=== PATIENT | male | born 1975 | race Caucasian/White ===

== ENCOUNTER 2020-05-23 07:52 | Inpatient (IN) ==
--- NOTE | 2020-05-07 10:04 | PAT Medication Instructions ---
Medication Instructions Date of Service May 07, 2020 Home Medications Z-Quill 1 tab PO HS lisinopril 10 mg PO QAM loratadine [Claritin] 10 mg PO QAM multivitamin 1 tab PO DAILY omeprazole 40 mg PO QAM sulindac 150 mg PO BID ASK your surgeon for instructions sulindac 150 mg PO BID DO NOT take the morning of surgery lisinopril 10 mg PO QAM loratadine [Claritin] 10 mg PO QAM multivitamin 1 tab PO DAILY Take morning of surgery With a small sip of water, OTHERWISE NOTHING TO EAT OR DRINK AFTER MIDNIGHT: omeprazole 40 mg PO QAM Take evening before surgery Z-Quill 1 tab PO HS Other Notes If you have any questions please call us at [phone] or [phone] or [phone] or [phone]
--- NOTE | 2020-05-08 14:16 | Anesthesiology Consultation ---
Date of Service May 08, 2020 Assessment & Plan (1) Encounter for pre-operative examination: Chart Review Chart Review: Acceptable Risk for Surgery (pending surgeon ordered PCP clearanace and preop Covid testing results ) Awaiting surgeon ordered PCP clearance scheduled 05/13 Per PAT appt on 05/08/20, pt resides in [facility]. Has traveled to [facility] and [facility]. No known Covid positive contacts or Covid related symptoms. Educated patient to follow up with surgeon's office regarding Covid testing. Educated on importance of self quarantining, social distancing and wearing mask in public both for the patient and household contacts. Teaching & Discussion Pre-Anesthesia Teaching/Discussion Notes: Instructed NPO after midnight before surgery,except medications with 15 cc of water. Medication instructions provided according to the PAT guidelines. History Surgery Operation Date: 05/23/20 10:55 Proposed Procedures p L5-S1 Decompression and Fusion; Spinal Cord Monitoring - Charles Che DO Height/Weight Height: 5 ft 7 in Weight: 78.8 kg Allergies Allergy/AdvReac Type Severity Reaction Status Date / Time No Known Allergies Allergy Unknown Verified 05/07/20 08:22 Medications Home Medications Medication Instructions Recorded Confirmed Last Taken Z-Quill 1 tab PO HS 05/07/20 05/07/20 Unknown lisinopril 10 mg PO QAM 05/07/20 05/07/20 Unknown loratadine [Claritin] 10 mg PO QAM 05/07/20 05/07/20 Unknown multivitamin 1 tab PO DAILY 05/07/20 05/07/20 Unknown omeprazole 40 mg PO QAM 05/07/20 05/07/20 Unknown sulindac 150 mg PO BID 05/07/20 05/07/20 Unknown Past Medical History Medical History Arthritis Chronic obstructive pulmonary disease Well controlled and stable GERD (gastroesophageal reflux disease) Well controlled and stable Hypertension Insomnia Seasonal allergies Exercise / Class Metabolic Activity II 4-5 Yardwork/Stairs/Walk up hill (one flight of stairs - no chest pain or SOB ) Past Family History Family History Other No significant family history Past Surgical History Surgical History (Updated 05/08/20 @ 14:13 by Emma Whitney PA-C) History of lung surgery "PATCHED RT LUNG" FOR COLLAPSE LUNG- around 2006 [place] teeth removed Past Anesthesia History No Hx of Anesthesia Complications and No Family Hx of Anesthesia Complications History of PONV No Hx of PONV and No Hx of Motion Sickness Social History Smoking Status: Former smoker tobacco type: cigarettes Do You Dip or Chew Tobacco: No Smoking End Date: QUIT 4 YEARS AGO Hx Alcohol Use: Yes Alcohol type: beer alcohol intake frequency: a few times a month substance use type: does not use Review of Systems Patient denies chest pain, shortness of breath, dyspnea on exertion, cough, wheezing, palpitations. No hx of seizures, stroke, CA, apnea/snoring. No hx of blood clots or blood transfusions Physical Exam Vital Signs VITALS BP 119/79 P 90 TEMP 98.4 SP02 96% RESP 16 Constitutional no acute distress ENMT Mouth: no TMJ clicking Thyromental Distance: > or= 3.5 Finger Breadths (4.0) Mallampati Class: I Neck neck extension not limited Respiratory normal respiratory effort; no respiratory distress Auscultation: lungs clear to auscultation bilaterally; no wheezes Cardiovascular Rate/Rhythm: regular rate and regular rhythm Heart Sounds: no murmur Vessels: no carotid bruit Musculoskeletal Spine: no pain with cervical ROM Neurologic moves all extremities Psychiatric Orientation: alert Testing Laboratory Results 05/08/20 14:25 05/08/20 14:25 PT 10.8 Seconds (9.0-12.0) 05/08/20 14:25 INR 1.0 (0.9-1.1) 05/08/20 14:25 APTT 27.3 Seconds (21.0-31.0) 05/08/20 14:25 Urine Color Yellow 05/08/20 14:25 Urine Appearance Clear (Clear) 05/08/20 14:25 Urine pH 6.0 (4.5-7.5) 05/08/20 14:25 Ur Specific [place] 1.012 (1.000-1.030) 05/08/20 14:25 Urine Protein Negative (Negative) 05/08/20 14:25 Urine Glucose (UA) Negative (Negative) 05/08/20 14:25 Urine Ketones Negative (Negative) 05/08/20 14:25 Urine Nitrite Negative (Negative) 05/08/20 14:25 Ur Leukocyte Esterase Negative (Negative) 05/08/20 14:25 Blood Type O Negative 05/08/20 14:25 Antibody Screen NEGATIVE 05/08/20 14:25 Electrocardiogram Date: 05/08/20 Findings: + NSR @ (86) Chest X-Ray Date: 05/08/20 Findings: + NAD Suture material within the right lung apex, unchanged. Otherwise, the lungs are clear. No pleural effusions. No pneumothorax. The heart is normal in size.
--- NOTE | 2020-05-08 15:12 | XRay Report ---
XR chest Pre-admission PA/Lat HISTORY: Preop. COMPARISON: Chest 02/21/2016. FINDINGS: Suture material within the right lung apex, unchanged. Otherwise, the lungs are clear. No p leural effusions. No pneumothorax. The heart is normal in size. Focal central depression at the super ior endplate of T5 which may represent a Schmorl's node old compression deformity. IMPRESSION: No significant change compared to the prior study. No acute process. ACT 112: Negative or not required by law. Electronically signed by: Donald Barrera M.D. 05/08/2020 3:11 PM
[2020-05-08 15:31] LABS: Basophils # (auto) 0.04 K/uL (0-0.2); Basophils % (auto) 0.6 %; Eosinophils # (auto) 0.13 K/uL (0-0.5); Eosinophils % (auto) 2.1 %; Hematocrit (blood only) 40.2 % (42-52); Hemoglobin 13.5 g/dL (14.0-18.0); Immature Granulocytes # (auto) 0.01 K/uL (0.00-0.02); Immature Granulocytes % (auto) 0.2 %; Lymphocytes # (auto) 2.17 K/uL (1.2-3.4); Mean Corpuscular Hemoglobin 30.1 pg (25-34); Mean Corpuscular Hgb Conc 33.6 g/dL (32-36); Mean Corpuscular Volume 89.5 fL (80-100); Mean Platelet Volume 10.3 fL (7.4-10.4); Monocytes # (auto) 0.44 K/uL (0.11-0.59); Monocytes % (auto) 7.1 %; Neutrophils # (auto) 3.41 K/uL (1.4-6.5); Platelet Count 264 K/uL (130-400); RDW Coefficient of Variation 12.3 % (11.5-14.5); RDW Standard Deviation 39.8 fL (36.4-46.3); Red Blood Count 4.49 M/uL (4.7-6.1)
[2020-05-08 15:39] LABS: Creatinine Clr Calc Pharmacy 93.8 ml/min; Est GFR (African American) 113.8; Est GFR (Non-African American) 98.2; Potassium 3.2 mmol/L (3.5-5.1)
[2020-05-08 15:45] LABS: Partial Thromboplastin Time 27.3 Seconds (21.0-31.0); Prothrombin Time 10.8 Seconds (9.0-12.0)
[2020-05-08 15:52] LABS: Appearance Urine Clear (Clear); Bilirubin Urine Negative (Negative); Blood Urine Negative (Negative); Color Urine Yellow; Glucose Urine UA Negative (Negative); Ketones Urine Negative (Negative); Leukocyte Esterase Urine Negative (Negative); Nitrite Urine Negative (Negative); Protein Urine Negative (Negative); Specific Gravity Urine 1.012 (1.000-1.030); Urobilinogen Urine Negative (Negative)
--- NOTE | 2020-05-09 06:53 | Electrocardiogram Report ---
Test Reason : Blood Pressure : / mmHG Vent. Rate : 086 BPM Atrial Rate : 086 BPM P-R Int : 132 ms QRS Dur : 096 ms QT Int : 360 ms P-R-T Axes : 075 069 056 degrees QTc Int : 430 ms Normal sinus rhythm Normal ECG When compared with ECG of 21-FEB-2016 06:56, Questionable change in QRS axis Confirmed by Cesar Pollock ([id number]) on 05/09/2020 6:53:06 AM Referred By: Charles Che Confirmed By:Cesar Pollock
[~2020-05-23 07:52] MED LIST: ACETAMINOPHEN 500 MG TAB PO SCH; CEFAZOLIN 1000MG 1,000 MG/7.5 ML SYR IV SCH; CeleBREX 200 MG CAP PO SCH; GABAPENTIN 900 MG DOSE PO SCH; LR 15ML/HR IV SCH
--- OUTSIDE RECORDS SUMMARY | 2020-05-23 07:54 | External Medical Summary | Continuity of Care Document ---
:1975 Author Name Wyatt Hall Address Unavailable Unavailable , Care Team Providers Name Role Phone Deana Torres M.D. Unavailable [email or web address] [email or web address], UNKNOWN Unavailable Unavailable Problems Active medical history not documented Allergies and Adverse Reactions Allergy history not documented Medications Medications not documented Procedures Procedures not documented Immunizations Immunizations not documented Plan of Treatment Planned Observations Planned Goals not documented Results No Known Results Results not documented
[2020-05-23] MEDS ORDERED: NEOSTIGMINE METHYLSULFATE 1 MG/ML 10ML VIAL ONE (08:31)
[2020-05-23] MEDS ORDERED: GLYCOPYRROLATE 0.2 MG/ML VIAL ONE (08:31)
[2020-05-23] MEDS ORDERED: fentaNYL citrate 100 MCG/2 ML VIAL ONE ×3 (08:31→10:55)
[2020-05-23] MEDS ORDERED: DEXAMETHASONE SOD INJ 4 MG/ML VIAL ONE (08:31)
[2020-05-23] MEDS ORDERED: LIDOCAINE HCL 2% 2 ML VIAL/AMP(20MG/ML) INFIL ONE (08:31)
[2020-05-23] MEDS ORDERED: ROCURONIUM BROMIDE 10 MG/ML 5 ML VIAL IV ONE ×2 (08:31→11:25)
[2020-05-23] MEDS ORDERED: MIDAZOLAM HCL 1 MG/ML 2ML VIAL ONE (08:31)
[2020-05-23] MEDS ORDERED: PROPOFOL IV EMULSION 10 MG/ML 20 ML VIAL IV ONE (08:31)
[2020-05-23] MEDS ORDERED: ONDANSETRON INJ 2 MG/ML 2 ML VIAL ONE (08:31)
[2020-05-23] MEDS ORDERED: PROMETHAZINE HCL 12.5 MG in SODIUM CHLORIDE 0.9% 50 ML IV PRN ×2 (09:08→13:39)
[2020-05-23] MEDS ORDERED: ATROPINE SULFATE 0.1 MG/ML 10ML SYR IV PRN (09:08)
[2020-05-23] MEDS ORDERED: ONDANSETRON INJ 2 MG/ML 2 ML VIAL IV PRN ×2 (09:08→13:39)
[2020-05-23] MEDS ORDERED: ePHEDrine sulfate 50 MG/ML AMP IV PRN (09:08)
--- NOTE | 2020-05-23 09:54 | History & Physical Bridge Note ---
Date of Service May 23, 2020 History & Physical Bridge Note I have examined the patient, reviewed the History & Physical and in the interval since the performance of the History & Physical I have noted the following changes of clinical significance: no changes noted
--- NOTE | 2020-05-23 09:55 | History & Physical Report ---
Date of Service May 23, 2020 Assessment & Plan (1) Neurogenic claudication due to lumbar spinal stenosis: Admission and Anticipated Discharge Date Admission Date: L5-S1 decompression fusion History of Present Illness Chief Complaint: Back and leg pain Primary Care Provider: Silvina Montelongo DO This is a 45-year-old male presents with chronic persistent back and leg pain after failing course of nonoperative care is here for surgical intervention. Allergies Allergy/AdvReac Type Severity Reaction Status Date / Time No Known Allergies Allergy Unknown Verified 05/23/20 08:21 Home Medications Home Medications Medication Instructions Recorded Confirmed Type Z-Quill 1 tab PO HS 05/07/20 05/23/20 History lisinopril 10 mg PO QAM 05/07/20 05/23/20 History loratadine [Claritin] 10 mg PO QAM 05/07/20 05/23/20 History multivitamin 1 tab PO DAILY 05/07/20 05/23/20 History omeprazole 40 mg PO QAM 05/07/20 05/23/20 History sulindac 150 mg PO BID 05/07/20 05/23/20 History Past Med/Surg History Medical History (Updated 05/23/20 @ 09:55 by Charles Che DO) Arthritis Chronic obstructive pulmonary disease Well controlled and stable GERD (gastroesophageal reflux disease) Well controlled and stable Hypertension Insomnia Seasonal allergies Surgical History History of lung surgery "PATCHED RT LUNG" FOR COLLAPSE LUNG- around 2006 [place] teeth removed Family History Other No significant family history Social History Smoking Status: Former smoker Smoking End Date: QUIT 4 YEARS AGO; Second Hand Exposure: Yes ( A CHILD); Do You Dip or Chew Tobacco: No; Tobacco Cessation Education Requested by Patient: No Hx Alcohol Use: Yes Alcohol type: beer Preferred Language: French Concert Or Lecture Hall Manager Required: No Beliefs That Will Affect Care: None Current Living Situation: Spouse Feels Safe at Home: Yes Safety Concerns: Feels Safe At This Time Physical Exam Physical Exam: Patient is alert and oriented neurologically intact. Heart regular rate and rhythm. Lungs clear to auscultation. Results & Data ([facility]) Vital Signs (Past 12 Hours) Vital Signs Temp Pulse Resp BP Pulse Ox 05/23/20 08:23 37.1 C 87 20 141/98 H 98
[2020-05-23] MEDS ORDERED: BACITRACIN INJ 50,000 UNIT VIAL ONE (10:11)
[2020-05-23] MEDS ORDERED: BUPIVACAINE/EPINEPHRINE 0.25% 1:200,000 30 ML VIAL ONE (10:11)
[2020-05-23] MEDS ORDERED: HYDROmorphone INJ 2 MG/ML SYR/VIAL ONE (10:55)
[2020-05-23] MEDS ORDERED: ESMOLOL HCL INJ 10 MG/ML 10ML VIAL IV ONE (11:03)
[2020-05-23] MEDS ORDERED: FLOSEAL HEMOSTATIC MATRIX 10ML TOP ONE (11:54)
--- NOTE | 2020-05-23 12:16 | Fluoroscopy Report ---
FL lumbar spine 2-3V HISTORY: 45 years-old Male L5-S1 DECOMPRESSION/FUSION/INTERBODY COMPARISON: CT abdomen pelvis 08/29/2007 TECHNIQUE: 2 spot fluoroscopic images of the lumbar spine were obtained utilizing 13.6 seconds fluoro scopy time FINDINGS: Laminectomy with posterior interbody iram and screw fusion and discectomy at L5-S1. The hardware appea rs intact. No acute fracture or unexpected retained foreign body. Mild spondylitic spurring. IMPRESSION: Fluoroscopic assistance as above. Please see operative report for further details. ACT 112: Negative or not required by law. The above report was generated using voice recognition software. It may contain grammatical, syntax o r spelling errors. Electronically signed by: Papo Johnson M.D. 05/23/2020 12:14 PM
--- NOTE | 2020-05-23 12:17 | Operative Report ---
Post Operative Report Pre & Post Diagnosis Operation Date: 05/23/20 09:35 Pre-Op Diagnosis: Neurogenic claudication due to lumbar spinal stenosis Post-Op Diagnosis: Neurogenic claudication due to lumbar spinal stenosis I identified the patient and participated in the time-out.: Yes Procedure Operation Date: 05/23/20 09:35 Actual Procedures #1 lumbar decompression with medial facetectomy and foraminotomies L5-S1. #2 posterior spinal fusion L5-S1. #3 placement posterior instrumentation L5-S1 peer #4 interbody fusion L5-S1. #5 placed a peek cage 13 x 26 mm at L5-S1. #6 placement of locally harvested morselized autograft in the posterior gutters per #7 placement infuse collagen sponge and master graft in the posterior gutters and ostial amp and interbody space. Surgeon Charles Che, Managed Care Provider Jigar Francis Estimated Blood Loss 150 Findings Consistent with Post-Op Diagnosis Specimens None Indications This is a 45-year-old male who presents with chronic persistent back and leg pain after failing extensive course of nonoperative care is here for surgical invention. Description of Procedure Patient was met with identified informed consent obtained. Patient was then taken to the operative suite underwent intubation placed in a prone position the Tristan table on top of the Edouard frame. All bony prominences well-padded eyes inspected to ensure no external pressure placed upon them. This point the lumbar spine was prepped and draped in normal sterile fashion. Sharp dissection with assistance of Bovie cautery was performed down to and exposing the lamina and transverse processes of L5 and the sacral ala bilaterally. From a caudal cephalad fashion complete laminectomy L5 was performed including medial facetectomy foraminotomy on the right addressing all neural compression. Pedicle screws were then placed in L5 and S1 levels bilaterally with assistance of fluoroscopy and appropriate size iarm placed. By way of a transfemoral approach on the right complete discectomy was performed endplates curetted to subcortical bleeding bone and a 13 x 26 mm peek cage filled with osteo-bone graft tapped in position. The rods were then locked in final position bilaterally. The transverse processes of L5 and S1 levels were burred to subcortical bleeding bone. Infuse collagen sponge master graft local autograft placed in the posterior gutters. 15 round ETIENNE drain inserted. Incision was then closed with 1 Vicryl in the fascia 2-0 Vicryl subcutaneously and 4 Monocryl for final skin closure. Steri-Strip sterile dressings placed. Patient waken taken PACU stable condition. Please note Jigar record was present at the entire procedure involved the patient positioning complex portions of the surgery and final skin closure. Lastly spinal cord monitoring was utilized at the surgery and no changes noted. I attest to the content of the Intraoperative Record and any orders documented therein. Any exceptions are noted below.
[2020-05-23] MEDS: fentaNYL citrate 100 MCG/2 ML VIAL IV PRN ×2 (12:42→12:49)
[2020-05-23] MEDS: HYDROmorphone INJ 2 MG/ML SYR/VIAL IV PRN ×2 (12:55→13:03)
[2020-05-23] MEDS ORDERED: HYDROmorphone INJ 1 MG/ML SYRINGE IV PRN (13:39)
[2020-05-23] MEDS ORDERED: FAMOTIDINE 20 MG TAB PO PRN (13:39)
[2020-05-23] MEDS ORDERED: HYDROmorphone INJ 0.5 MG/0.5 ML SYR IV PRN (13:39)
[2020-05-23] MEDS ORDERED: MAGNESIUM HYDROXIDE SUSP 30 ML UDC PO PRN (13:39)
[2020-05-23] MEDS ORDERED: ACETAMINOPHEN 500 MG TAB PO PRN (13:39)
[2020-05-23] MEDS ORDERED: DO NOT ADMINISTER PNEUMOCOCCAL VACCINE PRN (13:39)
[2020-05-23] MEDS ORDERED: ONDANSETRON 4 MG OD TAB PO PRN (13:39)
[2020-05-23] MEDS ORDERED: NALOXONE HCL 0.4 MG/1 ML VIAL/CARP IV PRN (13:39)
[2020-05-23] MEDS ORDERED: LORazepam 0.5 MG/1 ML VIAL IV PRN (13:39)
[2020-05-23] MEDS ORDERED: SOD PHOSPHATE/SOD BIPHOSPHATE ENEMA 132 ML BTL PR PRN (13:39)
[2020-05-23] MEDS ORDERED: METOCLOPRAMIDE HCL INJ 5 MG/ML 2 ML VIAL IV PRN (13:39)
[2020-05-23] MEDS ORDERED: TRAMADOL HCL 50 MG TABLET PO PRN (13:39)
[2020-05-23] MEDS ORDERED: ACETAMINOPHEN 1,000 MG/100 ML VIAL IV PRN (13:39)
[2020-05-23] MEDS ORDERED: bisacodyL 10 MG SUPP PR PRN (13:39)
[2020-05-23] MEDS ORDERED: DO NOT ADMINISTER FLU VACCINE PRN (13:39)
[2020-05-23] MEDS ORDERED: ALUMINUM/MAGNESIUM SUSP 30 ML UDC PO PRN (13:39)
[2020-05-23] MEDS ORDERED: LORazepam 0.5 MG TAB PO PRN (13:39)
--- NOTE | 2020-05-23 14:04 | Anesthesiology Progress Note ---
Date of Service May 23, 2020 Anesthesia Post Procedure Vital Signs Vital Signs: Temp Pulse Pulse Resp BP BP Pulse Ox 05/23/20 13:42 36.6 C 91 H 18 142/90 H 99 05/23/20 13:20 37.0 C 85 18 140/95 100 05/23/20 13:10 88 19 147/93 H 100 05/23/20 13:00 81 17 141/92 H 100 05/23/20 12:50 85 12 148/92 H 100 05/23/20 12:40 91 H 16 141/97 H 99 05/23/20 12:31 36.1 C L 100 H 18 160/93 H 100 05/23/20 08:23 37.1 C 87 20 141/98 H 98 Pain Intensity Back: Pain Intensity: 4 Transfer of Care Handoff Completed per policy Notes Mental Status: alert / awake / arousable and participated in evaluation Patient Amnestic to Procedure: Yes Nausea / Vomiting: adequately controlled Pain: adequately controlled Airway Patency, RR, SpO2: stable & adequate BP & HR: stable & adequate Hydration State: stable & adequate Anesthetic Complications: no major complications apparent and Pt Satisfied with anesthetic care
[2020-05-23] MEDS: OXYCODONE HCL IR 5 MG TAB (IMMEDIATE RELEASE) PO PRN ×2 (15:00→19:28)
[2020-05-23] MEDS: LACTATED RINGER'S 1,000 ML IV SCH ×2 (15:24→23:55)
[2020-05-23] MEDS: CEFAZOLIN 2000MG 2,000 MG/15 ML SYR IV SCH (18:12)
[2020-05-23] MEDS: KETOROLAC 30 MG/ML VIAL IV SCH ×2 (18:12→23:57)
[2020-05-23] MEDS ORDERED: Z QUILL PO SCH (21:00)
[2020-05-23] MEDS: DOCUSATE SODIUM/SENNA 50/8.6MG TAB PO SCH (21:18)
[2020-05-24] MEDS: OXYCODONE HCL IR 5 MG TAB (IMMEDIATE RELEASE) PO PRN ×2 (01:36→09:17)
[2020-05-24] MEDS: CEFAZOLIN 2000MG 2,000 MG/15 ML SYR IV SCH (01:37)
[2020-05-24] MEDS: POLYETHYLENE (MIRALAX) 17 GM PACK PO SCH ×4 (05:33→23:24)
[2020-05-24] MEDS: KETOROLAC 30 MG/ML VIAL IV SCH ×2 (05:33→12:43)
[2020-05-24 07:35] LABS: Basophils # (auto) 0.01 K/uL (0-0.2); Basophils % (auto) 0.1 %; Eosinophils # (auto) 0.03 K/uL (0-0.5); Eosinophils % (auto) 0.3 %; Hematocrit (blood only) 34.5 % (42-52); Hemoglobin 11.9 g/dL (14.0-18.0); Immature Granulocytes # (auto) 0.02 K/uL (0.00-0.02); Immature Granulocytes % (auto) 0.2 %; Lymphocytes # (auto) 1.73 K/uL (1.2-3.4); Lymphocytes % (auto) 16.5 %; Mean Corpuscular Hemoglobin 30.7 pg (25-34); Mean Corpuscular Hgb Conc 34.5 g/dL (32-36); Mean Corpuscular Volume 88.9 fL (80-100); Mean Platelet Volume 10.1 fL (7.4-10.4); Monocytes # (auto) 0.89 K/uL (0.11-0.59); Monocytes % (auto) 8.5 %; Neutrophils # (auto) 7.83 K/uL (1.4-6.5); Neutrophils % (auto) 74.4 %; Platelet Count 204 K/uL (130-400); RDW Standard Deviation 38.8 fL (36.4-46.3); Red Blood Count 3.88 M/uL (4.7-6.1); White Blood Count 10.51 K/uL (4.8-10.8)
[2020-05-24 08:05] LABS: BUN Creatinine Ratio 16.1 (10-20); Calcium 9.1 mg/dl (8.5-10.1); Creatinine Clr Calc Pharmacy 116.4 ml/min; Est GFR (African American) 124.6; Est GFR (Non-African American) 107.5; Potassium 3.6 mmol/L (3.5-5.1)
[2020-05-24] MEDS: MULTIVITAMIN TAB PO SCH (09:18)
[2020-05-24] MEDS: LORATADINE 10 MG TAB PO SCH (09:18)
[2020-05-24] MEDS: lisinopriL 10 MG TAB PO SCH (09:19)
[2020-05-24] MEDS: PANTOprazole 40 MG TAB PO SCH (09:19)
[2020-05-24] MEDS ORDERED: HYDROCODONE/ACETAMOPHEN 5/325MG TAB PO PRN (09:54)
--- NOTE | 2020-05-24 09:58 | Orthopedic Progress Note ---
Date of Service May 24, 2020 Assessment & Plan (1) Neurogenic claudication due to lumbar spinal stenosis: Admission and Anticipated Discharge Date Admission Date: May 23, 2020 This time we will continue physical therapy monitor his ETIENNE operatively discharge home next few days. Subjective Patient's back pain is controlled leg symptoms markedly improved Physical Exam Physical Exam: Patient is is ambulating halls has good strength testing. Results & Data ([facility]) Vital Signs (Past 12 Hours) Vital Signs Temp Pulse Resp BP BP Pulse Ox 05/24/20 08:09 36.8 C 102 H 18 146/91 H 99 05/24/20 02:52 36.5 C 84 16 143/82 H 98 05/23/20 23:02 36.6 C 94 H 15 113/72 96
[2020-05-24] MEDS: HYDROCODONE/ACETAMOPHEN 5/325MG TAB PO PRN ×2 (14:02→19:37)
[2020-05-24] MEDS: DOCUSATE SODIUM/SENNA 50/8.6MG TAB PO SCH (20:13)
[2020-05-25] MEDS: HYDROCODONE/ACETAMOPHEN 5/325MG TAB PO PRN ×3 (01:13→13:37)
[2020-05-25] MEDS: MULTIVITAMIN TAB PO SCH (09:00)
[2020-05-25] MEDS: LORATADINE 10 MG TAB PO SCH (09:00)
[2020-05-25] MEDS ORDERED: DEXAMETHASONE SOD PHOSPHATE 8 MG in SYRINGE 0 ML IV SCH (09:00)
[2020-05-25] MEDS: lisinopriL 10 MG TAB PO SCH (09:01)
[2020-05-25] MEDS: PANTOprazole 40 MG TAB PO SCH (09:01)
--- NOTE | 2020-05-25 10:52 | Discharge Summary ---
Date of Service May 25, 2020 Admission HPI Per Admitting Provider This is a 45-year-old male presents with chronic persistent back and leg pain after failing course of nonoperative care is here for surgical intervention. Principal Diagnosis Lumbar spinal stenosis with neurogenic claudication Discharge Data Allergies Allergy/AdvReac Type Severity Reaction Status Date / Time No Known Allergies Allergy Unknown Verified 05/23/20 08:21 Consultations 05/23/20 13:39 Consult Case Management - Discharge Planning Routine Procedures Performed Operation Date: 05/23/20 09:35 Actual Procedures p L5-S1 Decompression and Fusion, application of osteamp, application of Infuse, Spinal Cord Monitoring(Not Applicable) - Charles Che DO Ordered Studies 05/23/20 09:35 FL fluoroscopy <1hr Routine FL lumbar spine 2-3V Routine Hospital Course (1) Neurogenic claudication due to lumbar spinal stenosis: Patient with lumbar decompression fusion tolerated well second orthopedic for postop labor postop day 1 is up and ambulating progressed post postop day #2 excellent strength testing pain well controlled ETIENNE drain decreased probably. Subsequent discharge home. Discharge orders instructions follow-up chart for review. Total Time Total Time Spent Total Time Spent (In Minutes): 20 minutes Discharge Plan Discharge Items Patient Disposition: Home - Self-Care Reason For Visit: Unspecified Thoracic, Thoracolumbar and Lumbosacra Discharge Diagnosis: Lumbar spinal stenosis with neurogenic claudication Activity: As commented below Non-emergency contact: Primary Care Provider Call non-emergency contact if: you have any medication questions Follow-up/Referrals: Silvina Montelongo DO [Primary Care Provider] - Diet: Regular Addtl Attending Provider Instructions: ACTIVITY RECOMMENDATIONS: SELF CARE INSTRUCTIONS AFTER THORACIC/LUMBAR FUSIONS 1. You may walk to your tolerance. It is good exercise for your legs and back. Expect some back and intermittent leg aches and pains. 2. You may perform "counter-top" level activities (make a sandwich, conner with a project, etc.). 3. No bending or lifting of more than 10 pounds or back twisting of any nature (roll like a log when turning in bed). 4. You may ride in a car for 20-30 minutes at a time. No driving until after your first visit with your doctor. 5. Frequent changes of position and restricting sitting to 30 minutes at a time will help limit the amount of back spasms and stiffness you may experience. 6. You may discontinue the use of ambulatory aids (cane, crutches, etc.) once your strength and confidence allow. 7. You may flame brazing machine operator the shower and let water strike your incision when you arrive home at least once daily. Do not take a tub bath, sit in a hot tub or go into a swimming pool until after your first recheck in the office. SPECIAL CARE INSTRUCTIONS: VERY IMPORTANT TO READ AND REVIEW A. Your surgical incision has been closed with a cosmetic suture under the skin that will dissolve in about 6 weeks. In 14 days, you can use a pair of clean scissors and cut the suture that is left outside of the skin at the ends of your incision. 1. The small skin tapes can be removed 7 days after surgery if they have not fallen off by that point. 2. You may keep the wound open to air as much as possible to promote healing after post-op day number 5 unless told otherwise by your doctor. 3. If you think the wound looks like it is becoming infected (redness or wo rsening drainage) and/or you are experiencing fever, chill or worsening back pain and muscle spasms, contact the office so that we may evaluate you as soon as possible. B. Complications are uncommon, but please contact us if you have any signs or symptoms of: 1. wound infection (fever higher than 102.5 degrees F, redness, separation of wound, drainage, or increasing pain from the incision) 2. blood clots in legs (pain, swelling, redness and warmth in legs) 3. urinary tract infection (fever higher than 102.5 degrees F, burning upon urination or increased frequency of urination) 4. nerve problems (inability to walk on your toes or heels, numbness, loss of bowel or bladder control) 5. any other symptoms that concern you C. Please call the office at if you have any concerns or questions about your operation or recovery. D. No smoking! Smoking drastically decreases the chance of a solid fusion. E. Do not take any anti-inflammatory medications (Indocin, Advil, Motrin, Aspirin, Naprosyn, etc.) as these may inhibit the chance of a solid fusion. Tylenol is okay to take for pain. MANAGING PAIN AFTER SPINAL SURGERY 1. Narcotic medication is intended for short-term use and will be provided for surgical pain. Surgical pain usually lasts for a period of 4-6 weeks. Narcotic medication includes Percocet, Vicodin, Darvocet, Tylenol #3 or Lortab. 2. Longer-term pain is more appropriately treated with non-narcotic medication such as Tylenol ES. 3. Muscle spasm is not appropriately treated with narcotics. Muscle relaxers such as Soma, Flexeril or Skelaxin can be used along with Tylenol ES. 4. Remember that we all live with some "aches and pains". This is not unusual or uncommon after an injury or as we get older. a. Back pain is expected and may include muscle spasms for 4 to 6 weeks after surgery. The pain should gradually improve. If the pain worsens for no apparent reason, please contact the office. b. Intermittent leg pain may also be experienced and should not be concerned about unless it worsens for no apparent reason. If so, please contact the office. 5. We will provide appropriate medication within the normal guidelines of their prescribed use. We will also be very cautious and aware of potential abuse and extended duration of patients' medication needs. a. Pain medications are for your comfort and to assist with sleep and rest so that the tissue can heal. They are not provided in order to return to normal activity and should not be used through the day. To do so or worsening pain at night can result from ongoing tissue damage and development of tolerance to the prescribed medicine. 6. Please allow 2-3 days to process refills. Prescriptions will not be mailed but must be picked up at the office. FOLLOW UP VISIT: Keep your scheduled follow-up appointment. Any questions, please call the office at . Pending Studies at Discharge: No Stand-Alone Forms: [facility], Smoking Cessation Medications and DC Order Prescriptions: New oxycodone 5 mg tablet 5 mg PO Q6H PRN (Reason: pain, severe) Qty: 20 RF: 0 tramadol 50 mg tablet 50 mg PO Q6H PRN (Reason: pain, moderate) Qty: 20 RF: 0 Continued sulindac 150 mg Tablet 150 mg PO BID RF: 0 omeprazole 40 mg Capsule,Delayed Release(Dr/Ec) 40 mg PO QAM RF: 0 lisinopril 10 mg Tablet 10 mg PO QAM RF: 0 multivitamin Tablet,Chewable 1 tab PO DAILY RF: 0 Z-Quill 1 tab PO HS RF: 0 loratadine [Claritin] 10 mg Tablet 10 mg PO QAM RF: 0 Discharge Orders: Discharge Order (Routine); Ordered 05/25/20 Ordered By: Charles Che Admission Data Admit Date/Time: 05/23/20 13:07 Attending Provider: Charles Che Admit Provider: Charles Che Primary Care Provider: Silvina Montelongo
== END 2020-05-25 13:59 | disposition home or self-care (01) | DRG 455 ==
LOC: ASU 07:52 → 3E 13:07

== ENCOUNTER 2020-08-14 15:58 | Inpatient (IN) ==
[2020-08-14 16:58] LABS: Basophils # (auto) 0.02 K/uL (0-0.2); Basophils % (auto) 0.2 %; Eosinophils # (auto) 0.01 K/uL (0-0.5); Eosinophils % (auto) 0.1 %; Hematocrit (blood only) 42.6 % (42-52); Hemoglobin 14.9 g/dL (14.0-18.0); Immature Granulocytes # (auto) 0.04 K/uL (0.00-0.02); Immature Granulocytes % (auto) 0.5 %; Lymphocytes # (auto) 1.89 K/uL (1.2-3.4); Lymphocytes % (auto) 22.1 %; Mean Corpuscular Hemoglobin 30.5 pg (25-34); Mean Corpuscular Volume 87.3 fL (80-100); Mean Platelet Volume 10.3 fL (7.4-10.4); Monocytes # (auto) 0.39 K/uL (0.11-0.59); Monocytes % (auto) 4.6 %; Neutrophils # (auto) 6.21 K/uL (1.4-6.5); Neutrophils % (auto) 72.5 %; Platelet Count 300 K/uL (130-400); RDW Coefficient of Variation 12.8 % (11.5-14.5); Red Blood Count 4.88 M/uL (4.7-6.1); White Blood Count 8.56 K/uL (4.8-10.8)
[2020-08-14 17:12] LABS: Partial Thromboplastin Ratio 0.9; Partial Thromboplastin Time 25.6 Seconds (21.0-31.0); Prothrombin Time 10.7 Seconds (9.0-12.0)
[2020-08-14 17:20] LABS: Alanine Aminotransferase 60 U/L (12-78); Albumin Level 4.9 gm/dl (3.4-5.0); Aspartate Aminotransferase 19 U/L (15-37); BUN Creatinine Ratio 13.3 (10-20); Blood Urea Nitrogen 13 mg/dl (7-18); Calcium 9.9 mg/dl (8.5-10.1); Carbon Dioxide 26 mmol/L (21-32); Chloride 104 mmol/L (98-107); Creatinine Clr Calc Pharmacy 93.8 ml/min; Est GFR (African American) 113.8; Est GFR (Non-African American) 98.2; Glucose 105 mg/dl (70-99); Potassium 3.8 mmol/L (3.5-5.1); Sodium 137 mmol/L (136-145)
[2020-08-14 17:24] LABS: Albumin Globulin Ratio 1.2 (0.9-2); Alkaline Phosphatase 74 U/L (45-117); Bilirubin,Total 0.5 mg/dl (0.2-1); Total Protein 8.9 gm/dl (6.4-8.2); Troponin I < 0.015 ng/ml (0-0.045)
--- NOTE | 2020-08-14 17:59 | Emergency Department Note ---
Impression & Plan Mitral valve vegetation, Paresthesia of right upper extremity ED Provider Note INFORMANT: Patient ED PROVIDER(S): Salas Reynolds MD CHIEF COMPLAINT: Abnormal stress test PLAN: Disposition: Admitted Condition: Good MEDICAL DECISION MAKING: Patient presented by direction of cardiology due to concerns for endocarditis. Patient had a tachycardia on ECG. CBC, chemistries, and ESR normal. Mild elevation o f CRP. Cultures done.Patient given Zosyn and Daptomycin. Consultation with internal medicine made, Dr. Davidson. Patient was admitted for further work up and treatment. Triage Nursing notes reviewed and agree them. Vital Signs: reviewed and remarkable for tachycardia. Differential diagnosis: Endocarditis, Infection, dehydration, metabolic abnormality, hypo/hyperglycemia, electrolyte disturbance, anemia, hypoxia, cardiac sources, intracerebral event, toxicologic, neurologic, as well as other pathologies. Diagnostics interpreted by me: ECG:Rate:112 Rhythm: sinus tachycardia [place]:Normal QRS:Normal ST segements:No elevation or depression Other:No PACs or PVCs Cardiac Monitoring:Cardiac monitoring ordered by me: The patient was placed on continuous cardiac monitoring and observed. It revealed a ST at 105 beats per minute without ectopy or evidence of dysrhythmia. Imaging studies: Deferred [facility] HPI: The patient is a 45 year old male who presents to the Emergency Room with complaints of possible heart infection. The patient noted intermittent visual issues, right sided numbness. Stroke work up negative at [facility]. This started 3-4 weeks ago and a mitral valve vegetation was found today during a stress test. PCP set up stress test. Was sent here directly due to possible infection suspected. Does note a recent tooth extraction. No pain complaints. Pt denies LOC, headache, fevers, chills, diaphoresis, neck pain, chest pain, breathing difficulties, nausea, vomiting, abdominal pain, back pain, melena, hematochezia, urinary symptoms, weakness, lymphadenopathy, rash, or other complaints. ROS: See above HPI for pertinent positives & negatives. A total of 10 systems reviewed and were otherwise negative. PAST MEDICAL HISTORY:See Below , back pain, Pneumothorax PAST SURGICAL HISTORY:See Below,spinal fusion, Pleurodesis FAMILY HISTORY:See Below SOCIAL HISTORY:See Below, quit ETOH HOME MEDICATIONS:See Below ALLERGIES:See Below VITALS:See Below PHYSICAL EXAMINATION: GENERAL: Awake, alert, well-appearing, in no distress HENT: Normocephalic, atraumatic. Oropharynx unremarkable. EYES: Normal conjunctiva. Sclera non-icteric. NECK: Inspection normal. Non-tender. Supple. No nuchal rigidity. FROM. No masses. RESPIRATORY: Clear to auscultation. No wheezes. No rales. Normal respiratory effort. CARDIAC: Tachycardic rate. Normal rhythm. No murmurs. No rubs. Extremities warm and well perfused. Pulses equal. No JVD. GI: Soft, non-distended. No tenderness to palpation. No rebound or guarding. No masses. RECTAL: Deferred. MUSCULOSKELETAL: Atraumatic. Chest examination reveals no tenderness. The back is symmetrical on inspection without obvious abnormality. There is no CVA te nderness to palpation. No joint edema. LOWER EXTREMITIES: Calves are equal size bilaterally and non-tender. No edema. No discoloration. NEURO: Normal sensorium. No motor deficits noted. Subjective decreased sensation in the RUE distally. SKIN: No rash or jaundice noted. Salas Reynolds MD Past Med/Surg History Medical History Arthritis Chronic obstructive pulmonary disease GERD (gastroesophageal reflux disease) Hypertension Insomnia Seasonal allergies Surgical History History of lung surgery "PATCHED RT LUNG" FOR COLLAPSE LUNG- around 2006 [place] teeth removed Family History Other Stroke Social History Smoking Status: Former smoker Smoking End Date: 1989; Second Hand Exposure: Yes ( A CHILD); Hx Alcohol Use: Yes Alcohol type: beer Hx Substance Use: No Preferred Language: Swedish Communication Ability: Effective [employer] Required: No Beliefs That Will Affect Care: None marital status: Current Living Situation: Spouse Other Information That Helps Us Care for You: No Feels Safe at Home: Yes Safety Concerns: Feels Safe At This Time Assistive Devices: None Allergies Allergies Allergy/AdvReac Type Severity Reaction Status Date / Time No Known Allergies Allergy Unknown Verified 08/14/20 17:56 Home Meds Home Medications Medication Instructions Recorded Confirmed lisinopril 10 mg PO QAM 05/07/20 08/14/20 omeprazole 40 mg PO QAM 05/07/20 08/14/20 amoxicillin-pot clavulanate 1 tab PO BID 08/14/20 08/14/20 diphenhydramine HCl [ZzzQuil] 50 mg PO HS PRN 08/14/20 08/14/20 lorazepam 0.5 mg PO DAILY PRN 08/14/20 08/14/20 multivitamin 1 tab PO DAILY 08/14/20 08/14/20 prednisone 0 mg PO .TAPER UD 08/14/20 08/14/20 Results & Data (ED) Vital Signs Vital Signs - 24 hr 08/14/20 16:03 08/14/20 17:33 08/14/20 17:39 Temperature 37.0 C Temperature Source Oral Pulse Rate 121 H 107 H Pulse Rate [Apical] 107 H Pulse Rate [Right Finger] 102 H Pulse Rate from SpO2 Sensor Pulse Rhythm Regular Pulse Rhythm [Apical] Regular Pulse Strength [Apical] Normal Respiratory Rate 19 16 20 Respiratory Effort / Characteristics Non-Labored Non-Labored Spontaneous Respiratory Depth Normal Normal Respiratory Pattern Regular Blood Pressure 142/105 H Blood Pressure [Right Arm] 137/98 137/98 Blood Pressure Mean 117 Blood Pressure Mean [Right Arm] 111 111 Blood Pressure Position [Right Arm] Semi-fowlers Pulse Oximetry 99 97 97 Oxygen Delivery Method Room Air Room Air Room Air Sepsis Recent Fever Within 48 Hours No Sepsis New/Unexplained Change in Mental Status No Sepsis Action Taken by Nursing No Action Required 08/14/20 17:40 08/14/20 19:00 08/14/20 19:01 Temperature Temperature Source Pulse Rate 94 H 96 H Pulse Rate [Apical] Pulse Rate [Right Finger] 98 H Pulse Rate from SpO2 Sensor 94 H 97 H Pulse Rhythm Pulse Rhythm [Apical] Pulse Strength [Apical] Respiratory Rate 22 20 Respiratory Effort / Characteristics Non-Labored Respiratory Depth Respiratory Pattern Blood Pressure 127/97 Blood Pressure [Right Arm] 127/97 Blood Pressure Mean 102 Blood Pressure Mean [Right Arm] 107 Blood Pressure Position [Right Arm] Pulse Oximetry 97 98 98 Oxygen Delivery Method Room Air Room Air Sepsis Recent Fever Within 48 Hours Sepsis New/Unexplained Change in Mental Status Sepsis Action Taken by Nursing 08/14/20 19:30 08/14/20 19:31 08/14/20 20:00 Temperature Temperature Source Pulse Rate 115 H 118 H 102 H Pulse Rate [Apical] Pulse Rate [Right Finger] Pulse Rate from SpO2 Sensor 115 H 119 H 104 H Pulse Rhythm Pulse Rhythm [Apical] Pulse Strength [Apical] Respiratory Rate 19 Respiratory Effort / Characteristics Respiratory Depth Respiratory Pattern Blood Pressure 138/93 143/97 H Blood Pressure [Right Arm] Blood Pressure Mean 97 106 Blood Pressure Mean [Right Arm] Blood Pressure Position [Right Arm] Pulse Oximetry 98 97 98 Oxygen Delivery Method Sepsis Recent Fever Within 48 Hours Sepsis New/Unexplained Change in Mental Status Sepsis Action Taken by Nursing 08/14/20 20:01 Temperature Temperature Source Pulse Rate 105 H Pulse Rate [Apical] Pulse Rate [Right Finger] Pulse Rate from SpO2 Sensor 106 H Pulse Rhythm Pulse Rhythm [Apical] Pulse Strength [Apical] Respiratory Rate 19 Respiratory Effort / Characteristics Respiratory Depth Respiratory Pattern Blood Pressure Blood Pressure [Right Arm] Blood Pressure Mean Blood Pressure Mean [Right Arm] Blood Pressure Position [Right Arm] Pulse Oximetry 98 Oxygen Delivery Method Sepsis Recent Fever Within 48 Hours Sepsis New/Unexplained Change in Mental Status Sepsis Action Taken by Nursing Laboratory Data Result diagrams: 08/15/20 06:43 08/15/20 06:43 Lab Results 08/14/20 08/14/20 08/14/20 Range/Units 16:48 16:48 16:48 WBC 8.56 (4.8-10.8) K/uL RBC 4.88 (4.7-6.1) M/uL Hgb 14.9 (14.0-18.0) g/dL Hct 42.6 (42-52) % MCV 87.3 (80-100) fL MCH 30.5 (25-34) pg MCHC 35.0 (32-36) g/dL RDW Std Deviation 41.0 (36.4-46.3) fL RDW Coeff of Dorian 12.8 (11.5-14.5) % Plt Count 300 (130-400) K/uL MPV 10.3 (7.4-10.4) fL Immature Gran % (Auto) 0.5 % Neut % (Auto) 72.5 % Lymph % (Auto) 22.1 % [place] % (Auto) 4.6 % Eos % (Auto) 0.1 % Baso % (Auto) 0.2 % Neut # (Auto) 6.21 (1.4-6.5) K/uL Lymph # (Auto) 1.89 (1.2-3.4) K/uL [place] # (Auto) 0.39 (0.11-0.59) K/uL Eos # (Auto) 0.01 (0-0.5) K/uL Baso # (Auto) 0.02 (0-0.2) K/uL Immature Gran # (Auto) 0.04 H (0.00-0.02) K/uL ESR (0-14) mm/hr PT 10.7 (9.0-12.0) Seconds INR 1.0 (0.9-1.1) APTT 25.6 (21.0-31.0) Seconds PTT Ratio 0.9 Sodium 137 (136-145) mmol/L Potassium 3.8 (3.5-5.1) mmol/L Chloride 104 (98-107) mmol/L Carbon Dioxide 26 (21-32) mmol/L Anion Gap 7.0 (3-11) BUN 13 (7-18) mg/dl Creatinine 0.94 (0.6-1.4) mg/dl Est Cr Clr Drug Dosing 93.8 ml/min Est GFR ( Amer) 113.8 Est GFR (Non-Af Amer) 98.2 BUN/Creatinine Ratio 13.3 (10-20) Glucose 105 H (70-99) mg/dl Lactate (0.4-2.0) mmol/L Calcium 9.9 (8.5-10.1) mg/dl Total Bilirubin 0.5 (0.2-1) mg/dl AST 19 (15-37) U/L ALT 60 (12-78) U/L Alkaline Phosphatase 74 (45-117) U/L Troponin I < 0.015 (0-0.045) ng/ml C-Reactive Protein (0-0.29) mg/dl Total Protein 8.9 H (6.4-8.2) gm/dl Albumin 4.9 (3.4-5.0) gm/dl Globulin 4.0 (2.5-4.0) gm/dl Albumin/Globulin Ratio 1.2 (0.9-2) SARS-CoV-2 Ag (Rapid) (Negative) 08/14/20 08/14/20 08/14/20 Range/Units 16:48 16:48 18:09 WBC (4.8-10.8) K/uL RBC (4.7-6.1) M/uL Hgb (14.0-18.0) g/dL Hct (42-52) % MCV (80-100) fL MCH (25-34) pg MCHC (32-36) g/dL RDW Std Deviation (36.4-46.3) fL RDW Coeff of Dorian (11.5-14.5) % Plt Count (130-400) K/uL MPV (7.4-10.4) fL Immature Gran % (Auto) % Neut % (Auto) % Lymph % (Auto) % [place] % (Auto) % Eos % (Auto) % Baso % (Auto) % Neut # (Auto) (1.4-6.5) K/uL Lymph # (Auto) (1.2-3.4) K/uL [place] # (Auto) (0.11-0.59) K/uL Eos # (Auto) (0-0.5) K/uL Baso # (Auto) (0-0.2) K/uL Immature Gran # (Auto) (0.00-0.02) K/uL ESR 12 (0-14) mm/hr PT (9.0-12.0) Seconds INR (0.9-1.1) APTT (21.0-31.0) Seconds PTT Ratio Sodium (136-145) mmol/L Potassium (3.5-5.1) mmol/L Chloride (98-107) mmol/L Carbon Dioxide (21-32) mmol/L Anion Gap (3-11) BUN (7-18) mg/dl Creatinine (0.6-1.4) mg/dl Est Cr Clr Drug Dosing ml/min Est GFR ( Amer) Est GFR (Non-Af Amer) BUN/Creatinine Ratio (10-20) Glucose (70-99) mg/dl Lactate 1.6 (0.4-2.0) mmol/L Calcium (8.5-10.1) mg/dl Total Bilirubin (0.2-1) mg/dl AST (15-37) U/L ALT (12-78) U/L Alkaline Phosphatase (45-117) U/L Troponin I (0-0.045) ng/ml C-Reactive Protein < 0.29 (0-0.29) mg/dl Total Protein (6.4-8.2) gm/dl Albumin (3.4-5.0) gm/dl Globulin (2.5-4.0) gm/dl Albumin/Globulin Ratio (0.9-2) SARS-CoV-2 Ag (Rapid) (Negative) 08/14/20 Range/Units 18:46 WBC (4.8-10.8) K/uL RBC (4.7-6.1) M/uL Hgb (14.0-18.0) g/dL Hct (42-52) % MCV (80-100) fL MCH (25-34) pg MCHC (32-36) g/dL RDW Std Deviation (36.4-46.3) fL RDW Coeff of Dorian (11.5-14.5) % Plt Count (130-400) K/uL MPV (7.4-10.4) fL Immature Gran % (Auto) % Neut % (Auto) % Lymph % (Auto) % [place] % (Auto) % Eos % (Auto) % Baso % (Auto) % Neut # (Auto) (1.4-6.5) K/uL Lymph # (Auto) (1.2-3.4) K/uL [place] # (Auto) (0.11-0.59) K/uL Eos # (Auto) (0-0.5) K/uL Baso # (Auto) (0-0.2) K/uL Immature Gran # (Auto) (0.00-0.02) K/uL ESR (0-14) mm/hr PT (9.0-12.0) Seconds INR (0.9-1.1) APTT (21.0-31.0) Seconds PTT Ratio Sodium (136-145) mmol/L Potassium (3.5-5.1) mmol/L Chloride (98-107) mmol/L Carbon Dioxide (21-32) mmol/L Anion Gap (3-11) BUN (7-18) mg/dl Creatinine (0.6-1.4) mg/dl Est Cr Clr Drug Dosing ml/min Est GFR ( Amer) Est GFR (Non-Af Amer) BUN/Creatinine Ratio (10-20) Glucose (70-99) mg/dl Lactate (0.4-2.0) mmol/L Calcium (8.5-10.1) mg/dl Total Bilirubin (0.2-1) mg/dl AST (15-37) U/L ALT (12-78) U/L Alkaline Phosphatase (45-117) U/L Troponin I (0-0.045) ng/ml C-Reactive Protein (0-0.29) mg/dl Total Protein (6.4-8.2) gm/dl Albumin (3.4-5.0) gm/dl Globulin (2.5-4.0) gm/dl Albumin/Globulin Ratio (0.9-2) SARS-CoV-2 Ag (Rapid) Negative (Negative) Administered Medications Acetaminophen (Acetaminophen 325 Mg Tab) 650 mg PO Q4H PRN PRN Reason: Pain or Fever Stop: 09/13/20 22:17 Last Admin: 08/15/20 07:39 Dose: 650 mg Documented by: [id number] Sodium Chloride (Nss 1000ml) 1,000 mls @ 125 mls/hr IV .Q8H [facility] Stop: 09/13/20 17:44 Last Admin: 08/15/20 07:40 Dose: 125 mls/hr Documented by: [id number] Infusion: 08/15/20 07:39 Dose: 125 mls/hr Documented by: [id number] Admin: 08/14/20 23:39 Dose: 125 mls/hr Documented by: [id number] Infusion: 08/14/20 23:39 Dose: 125 mls/hr Documented by: [id number] Admin: 08/14/20 19:00 Dose: 125 mls/hr Documented by: [id number] Piperacillin Sod/Tazobactam (Sod 3.375 gm/ Dextrose) 115 mls @ 28.75 mls/hr IV Q8H JAGUAR; Protocol Stop: 09/26/20 00:00 Last Admin: 08/15/20 07:39 Dose: 28.8 mls/hr Documented by: [id number] Infusion: 08/15/20 03:54 Dose: 0 mls/hr Documented by: [id number] Admin: 08/14/20 23:39 Dose: 28.8 mls/hr Documented by: [id number] Lisinopril (Lisinopril 10 Mg Tab) 10 mg PO QAM [facility] Stop: 09/14/20 08:59 Last Admin: 08/15/20 12:32 Dose: 10 mg Documented by: [id number] Multivitamins (Multivitamin Tab) 1 tab PO DAILY JAGUAR Stop: 09/14/20 08:59 Last Admin: 08/15/20 12:31 Dose: 1 tab Documented by: [id number] Pantoprazole Sodium (Pantoprazole 40 Mg Tab) 40 mg PO QAM [facility] Stop: 09/14/20 08:59 Last Admin: 08/15/20 12:31 Dose: 40 mg Documented by: [id number] Discontinued Medications Cyclobenzaprine HCl (Cyclobenzaprine Hcl 10 Mg Tab) 10 mg PO NOW STA Stop: 08/14/20 23:16 Last Admin: 08/14/20 23:38 Dose: 10 mg Documented by: [id number] Fentanyl Citrate (Fentanyl Citrate 100 Mcg/2 Ml Vial) Confirm Administered Dose 100 mcg .ROUTE .STK-MED ONE Stop: 08/15/20 08:42 Last Increment: 08/15/20 10:59 Dose: 25 mcg Documented by: [id number] Fentanyl Citrate (Fentanyl Citrate 100 Mcg/2 Ml Vial) Confirm Administered Dose 100 mcg .ROUTE .STK-MED ONE Stop: 08/15/20 10:18 Last Admin: 08/15/20 10:59 Dose: 100 mcg Documented by: [id number] Gadobutrol (Gadobutrol 65ml Vial) 7.7 ml IV ONCE ONE Stop: 08/14/20 22:25 Last Admin: 08/14/20 22:25 Dose: 7.7 ml Documented by: [id number] Heparin Sodium (Porcine) (Heparin Sod 5,000 Unit/0.5 Ml Vial) 5,000 units SQ NOW ONE Stop: 08/14/20 22:19 Last Admin: 08/14/20 23:39 Dose: 5,000 units Documented by: [id number] Piperacillin Sod/Tazobactam Sod (Zosyn) 4.5 gm in 120 mls @ 240 mls/hr IV NOW ONE Stop: 08/14/20 18:44 Last Infusion: 08/14/20 23:22 Dose: 0 mls/hr Documented by: [id number] Admin: 08/14/20 18:59 Dose: 240 mls/hr Documented by: [id number] Daptomycin 500 mg/ Syringe 10 mls @ 5 mls/min IV ONE ONE; Protocol Stop: 08/14/20 18:16 Last Admin: 08/14/20 20:00 Dose: 5 mls/min Documented by: [id number] Lorazepam (Ativan) 0.5 mg in 1 mls @ 1 mls/min IV NOW STA Stop: 08/14/20 21:04 Last Admin: 08/14/20 21:08 Dose: 1 mls/min Documented by: [id number] Midazolam HCl (Midazolam Hcl 5 Mg/Ml 1 Ml Vial) Confirm Administered Dose 5 mg .ROUTE .STK-MED ONE Stop: 08/15/20 08:42 Last Admin: 08/15/20 10:59 Dose: Not Given Documented by: [id number] Midazolam HCl (Midazolam Hcl 5 Mg/Ml 1 Ml Vial) Confirm Administered Dose 5 mg .ROUTE .STK-MED ONE Stop: 08/15/20 10:17 Last Admin: 08/15/20 10:58 Dose: 5 mg Documented by: [id number] Discharge Plan Visit Data Chief Complaint: Referred by Doctor Stated Complaint: ARM NUMBNESS, DOC REF'D ED Provider: Salas Reynolds Discharge Problem: Mitral valve vegetation, Paresthesia of right upper extremity Patient Disposition: Admitted As Inpatient Discharge Instructions Interventions: ED Discharge Assessment Last Done: 08/14/20 21:26
[2020-08-14] MEDS ORDERED: PIPERACILLIN/TAZOBACTAM 4.5 GM/120 ML BAG IV ONE (18:15)
[2020-08-14] MEDS ORDERED: DAPTOmycin 500 MG in SYRINGE 0 ML IV ONE (18:15)
[2020-08-14] MEDS ORDERED: PIPERACILL/TAZOBAC CONSULT ACTIVE PRN (18:15)
[2020-08-14] MEDS: SODIUM CHLORIDE 0.9% 1000ML 1,000 ML IV SCH ×2 (19:00→23:39)
--- NOTE | 2020-08-14 20:14 | History & Physical Report ---
Date of Service August 14, 2020 Assessment & Plan (1) Mitral valve vegetation: This is a 45-year-old male with PMH of COPD, hypertension, GERD, recent L5-S1 fusion and other medical problems listed below who presents from cardiology clinic due to concern for possible mitral valve endocarditis seen on 2D echocardiogram today. -Sent from cardiology clinic after findings of resting echo were concerning for possible mitral valve vegetation -Report from earlier today shows a "moderate sized mobile echodensity adherent to the anterior mitral valve leaflet or chordae insertion. Differential includes vegetation, thrombus or calcified/thickened redundant and/or dissected chordae" -Concern for possible mitral valve endocarditis in setting of recent neurological symptoms as well as dental procedure last month -Afebrile and hemodynamically stable with mild tachycardia of 105. No leukocyt osis, ESR and CRP normal, troponin negative, electrolytes normal, rapid covid negative -Blood cultures obtained and patient started on IV Zosyn and Dapto -Plan for transesophageal echocardiogram tomorrow morning - NPO @ [facility], pre- procedural covid test ordered -Cardiology consulted (2) Visual disturbances: (3) Paresthesia of right upper extremity: Recent evaluation by neuro-ophthalmology, neurology and ENT as detailed in HPI -No acute symptoms or focal neuro deficits on exam -Will repeat MRI brain w/wo ([place] [facility] [place] due to continued visual disturbances, also to eval for abscess -MRI cervical spine ordered in setting of RUE paresthesias -Holding Augmentin while receiving IV abx. Continue prednisone taper (20mg x 3 days, 10mg x 3 days remaining) -Neurology consulted (4) Hypertension: Normotensive. Continue lisinopril (5) Chronic obstructive pulmonary disease: Stable (6) GERD (gastroesophageal reflux disease): Continue PPI DVT Ppx: SQ heparin x 1 tonight. Resume tomorrow after procedure Code status: FULL PCP: Jayda Dispo: Admitted to PCU Patient seen in collaboration with Dr. Davidson. Please see addendum. History of Present Illness Chief Complaint: Right upper extremity paresthesia, concern for endocarditis Primary Care Provider: Silvina Montelongo, This is a 45-year-old male with PMH of COPD, hypertension, GERD, recent L5-S1 fusion and other medical problems listed below who presents from cardiology clinic due to concern for possible mitral valve endocarditis seen on 2D echocardiogram today. Patient with a complex recent health history, starting with undergoing a tooth extraction in mid July. One week later, patient developed neurological symptoms including visual changes and right sided paresthesias. Was evaluated [facility] where he had a telestroke evaluation with CT Head negative for acute pathology. Was diagnosed with acute anxiety and given ativan at that time, which improved paresthesias and and was discharged. However, visual symptoms persisted. 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 Was sent to [facility] [place] for evaluation with brain MRI on 08/02, which did not show evidence of acute ischemia, hemorrhage, or mass effect. Unremarkable appearance of the midbrain, tectum, and occipital cortices. Presence of scattered foci of T2 hyperintensity in the subcortical white matter bilaterally, without restricted diffusion, a non-specific finding which most commonly reflects chronic small vessel ischemic change. AchR ab was ordered to evaluate for myasthenia gravis and was negative. During this workup, patient was found to have a right petrous bone effusion. Has seen ENT for this and the tinnitus. Was placed on oral steroids and Augmentin and has been taking them for 1.5 weeks. Underwent additional imaging last week, including MRA head and neck which were unremarkable. MRI IAC revealed mild cerebral white matter disease, more than expected for the patient's age, predominantly in the subcortical frontal lobe distribution. In addition to neurological symptoms, patient has recently been experiencing waxing and waning anterior chest soreness. Today, patient underwent exercise stress echo and findings of resting echo were concerning for possible mitral valve vegetation. Report from earlier today shows a "moderate sized mobile echodensity adherent to the anterior mitral valve leaflet or chordae insertion. Differential diagnosis includes vegetation, thrombus or calcified/thickened redundant and/or dissected chordae". Due to recent neurological symptoms and dental procedure last month, cardiology concerned for possible mitral valve endocarditis. Was sent to [facility] ED for stat blood cultures, broad-spectrum antibiotics and plan for transesophageal echocardiogram tomorrow morning. Patient feels generally weak with paresthesias of right upper extremity and some continued visual disturbance. Endorses intermittent chills but denies any fever. No headache, neck stiffness or reduced range of motion. Denies any lightheadedness, dizziness, chest pain, palpitations, shortness of breath, nausea, vomiting, abdominal pain, dysuria, diarrhea or constipation. No focal weakness, difficulty speaking or swallowing. Ambulating without issue. Allergies Allergy/AdvReac Type Severity Reaction Status Date / Time No Known Allergies Allergy Unknown Verified 08/14/20 17:56 Home Medications Medication Instructions Recorded Confirmed Type lisinopril 10 mg PO QAM 05/07/20 08/14/20 History omeprazole 40 mg PO QAM 05/07/20 08/14/20 History amoxicillin-pot clavulanate 1 tab PO BID 08/14/20 08/14/20 History diphenhydramine HCl [ZzzQuil] 50 mg PO HS PRN 08/14/20 08/14/20 History lorazepam 0.5 mg PO DAILY PRN 08/14/20 08/14/20 History multivitamin 1 tab PO DAILY 08/14/20 08/14/20 History prednisone 0 mg PO .TAPER UD 08/14/20 08/14/20 History Past Med/Surg History Medical History (Updated 08/14/20 @ 21:36 by Renetta Kang PA-C) Arthritis Chronic obstructive pulmonary disease GERD (gastroesophageal reflux disease) Hypertension Insomnia Seasonal allergies Surgical History History of lung surgery "PATCHED RT LUNG" FOR COLLAPSE LUNG- around 2006 Brickeys teeth removed Family History Other Stroke Social History (Updated 08/14/20 @ 21:33 by Renetta Kang PA-C) Smoking Status: Former smoker Smoking End Date: 1989; Second Hand Exposure: Yes ( A CHILD); Hx Alcohol Use: Yes Alcohol type: beer Preferred Language: Chinese Communication Ability: Effective 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 Physical Exam Physical Exam: General Appearance: WD/WN, vitals as above, NAD, sitting up in bed, pleasant, conversing easily Head: normocephalic, atraumatic Eyes: normal inspection, PERRL, conjunctivae normal, anicteric sclerae ENT: external ear and nose normal, oropharynx normal Neck: normal visual inspection, trachea midline, no thyromegaly Respiratory: normal respiratory effort, lungs clear to auscultation, no wheeze, rales, rhonchi. No accessory muscle use Cardiovascular: tachycardic rate, regular rhythm, no murmur appreciated, normal peripheral pulses, no BLE edema. Vessels: no JVD Chest: normal inspection of chest Abdomen/GI: normal bowel sounds, soft, nontender, no hepatosplenomegaly Extremities/Musculoskeletal: no cyanosis or clubbing, extremities motor strength 5/5 Neurologic: PERRL, EOMI, accommodation nl, no face palsy, no dysarthria, CN's II-XI intact bilaterally and moves all extremities. Endorsing RUE paresthesias but no sensory deficit noted Psychiatric: A+Ox4, euthymic affect Skin: no rashes, normal color, warm/dry Results & Data Results & Data ([facility]) Vital Signs (Past 12 Hours) Vital Signs Temp Pulse Pulse Pulse Resp BP BP 08/14/20 20:01 105 H 19 08/14/20 20:00 102 H 143/97 H 08/14/20 19:31 118 H 19 08/14/20 19:30 115 H 138/93 08/14/20 19:01 96 H 20 08/14/20 19:00 94 H 98 H 22 127/97 127/97 08/14/20 17:40 08/14/20 17:39 102 H 20 137/98 08/14/20 17:33 107 H 107 H 16 137/98 08/14/20 16:03 37.0 C 121 H 19 142/105 H Pulse Ox 08/14/20 20:01 98 08/14/20 20:00 98 08/14/20 19:31 97 08/14/20 19:30 98 08/14/20 19:01 98 08/14/20 19:00 98 08/14/20 17:40 97 08/14/20 17:39 97 08/14/20 17:33 97 08/14/20 16:03 99 Laboratory Results Short CBC 08/14/20 Range/Units 16:48 WBC 8.56 (4.8-10.8) K/uL Hgb 14.9 (14.0-18.0) g/dL Hct 42.6 (42-52) % Plt Count 300 (130-400) K/uL BMP 08/14/20 16:48 Sodium 137 Potassium 3.8 Chloride 104 Carbon Dioxide 26 BUN 13 Creatinine 0.94 Glucose 105 H Calcium 9.9 Cardiac Enzymes 08/14/20 Range/Units 16:48 Troponin I < 0.015 (0-0.045) ng/ml Liver Function 08/14/20 Range/Units 16:48 Total Bilirubin 0.5 (0.2-1) mg/dl AST 19 (15-37) U/L ALT 60 (12-78) U/L Alkaline Phosphatase 74 (45-117) U/L Albumin 4.9 (3.4-5.0) gm/dl Diagnostic Findings Repeat MRI brain w/wo and cervical spine MRI pending Supervising Physician Co-Signing Physician Notes I saw this patient with the physician assistant farm operations manager, I participated in the history, physical, review of systems, and physical exam. I reviewed the medications with the patient and the physician assistant farm operations manager and helped reconcile the medications. I helped take a detailed family and social history as well. I formulated the assessment and plan personally with the physician assistant farm operations manager and went over it with the patient. Physical Exam Gen-AAO x 3, NAD, Afebrile Head-NCAT, EOMI, PERRLA, Anicteric Sclera, No Posterior Pharyngeal Erythema Neck-Supple, No JVD, No Thyromegaly, No Masses, No LAD, No Bruits Lungs-Clear to Auscultation Bilaterally, No Rales, No Rhonchi, No Wheezing, No Crepitus Chest-No S4, +S1, +S2, No S3, No Murmurs, No Rubs, No Gallops, No Ectopy Abdomen-Soft, Bowel Sounds Present, Non Tender, Non Distended, No Hepatomegaly, No Splenomegaly, No Palpable Masses, No Rebound, No Rigidity, No Guarding Musculoskeletal-Full Range of Motion Bilaterally, No CVAT Extremities-No Cyanosis, No Clubbing, No Edema Nuero-Cranial Nerves II-XII grossly intact, Motor WNL, DTRs WNL, Strength decreased RUE Psych-Odd Affect
[2020-08-14] MEDS ORDERED: LORazepam 0.5 MG/1 ML VIAL IV STA (21:03)
[2020-08-14] MEDS ORDERED: CONSULT PHARMACY STA (22:18)
[2020-08-14] MEDS ORDERED: ACETAMINOPHEN 325 MG TAB PO PRN (22:18)
[2020-08-14] MEDS ORDERED: HEPARIN SOD 5,000 UNIT/0.5 ML VIAL SQ ONE (22:18)
[2020-08-14] MEDS ORDERED: POLYETHYLENE (MIRALAX) 17 GM PACK PO PRN (22:18)
[2020-08-14] MEDS ORDERED: ONDANSETRON INJ 2 MG/ML 2 ML VIAL IV PRN (22:18)
[2020-08-14] MEDS ORDERED: LORazepam 0.5 MG TAB PO PRN (22:18)
[2020-08-14] MEDS ORDERED: GADOBUTROL 65ML VIAL IV ONE (22:24)
[2020-08-14] MEDS ORDERED: CYCLOBENZAPRINE HCL 10 MG TAB PO STA (23:15)
[2020-08-14] MEDS: PIPERACILLIN/TAZOBACTAM 3.375 GM in DEXTROSE 5% 100 ML IV SCH (23:39)
[2020-08-15 00:35] LABS: Influenza A virus by PCR Negative (Neg); Influenza B virus by PCR Negative (Neg); RSV by PCR Negative (Neg); SARS CoV2 RNA(COVID-19) InHosp NEGATIVE (Negative)
[2020-08-15 07:02] LABS: Hematocrit (blood only) 37.5 % (42-52); Hemoglobin 12.7 g/dL (14.0-18.0); Mean Corpuscular Hemoglobin 30.2 pg (25-34); Mean Corpuscular Hgb Conc 33.9 g/dL (32-36); Mean Corpuscular Volume 89.1 fL (80-100); Mean Platelet Volume 10.4 fL (7.4-10.4); Platelet Count 225 K/uL (130-400); RDW Coefficient of Variation 12.7 % (11.5-14.5); RDW Standard Deviation 40.5 fL (36.4-46.3); Red Blood Count 4.21 M/uL (4.7-6.1)
[2020-08-15 07:23] LABS: BUN Creatinine Ratio 16.5 (10-20); Calcium 8.6 mg/dl (8.5-10.1); Creatinine Clr Calc Pharmacy 100.2 ml/min; Est GFR (African American) 121.1; Est GFR (Non-African American) 104.5; Potassium 3.3 mmol/L (3.5-5.1)
[2020-08-15] MEDS: PIPERACILLIN/TAZOBACTAM 3.375 GM in DEXTROSE 5% 100 ML IV SCH ×2 (07:39→16:18)
--- NOTE | 2020-08-15 07:39 | Magnetic Resonance Report ---
MRI OF THE BRAIN WITHOUT AND WITH IV CONTRAST CLINICAL HISTORY: Headache. Vision changes. Right arm numbness. Evaluate for cerebrovascular accident or abscess. COMPARISON STUDY: Head CT February 21, 2016. TECHNIQUE: Utilizing a 1.5 Laina magnet and dedicated coil, multiplanar, multiecho imaging of the br ain was performed pre and postcontrast administration. IV administration of 7.7 mL of Gadavist contr ast was uneventful. FINDINGS: There are no foci of restricted diffusion to suggest acute infarct. No acute intracranial h emorrhage, midline shift or mass effect is present. Brain volume is normal. Ventricular system is nor mal. Basilar cisterns are patent. There are no extra-axial collections. Flow-voids for the major intr acranial vessels are present. There is no intracranial mass or pathologic enhancement. There are eulalio ral subcortical white matter T2 hyperintense foci. Calvarial signal is normal. Orbits are unremarkabl e on this nondedicated exam. There is no fluid within the mastoid air cells. There is no significant fluid within the sinuses. IMPRESSION: 1. No acute intracranial findings. 2. No intracranial mass or pathologic enhancement. 3. Several subcortical white matter T2 hyperintense foci. Although nonspecific, findings likely refle ct small vessel disease. ACT 112: Negative or not required by law. Electronically signed by: Long Guerrero M.D. 08/15/2020 7:38 AM
[2020-08-15] MEDS: SODIUM CHLORIDE 0.9% 1000ML 1,000 ML IV SCH (07:40)
--- NOTE | 2020-08-15 07:55 | Magnetic Resonance Report ---
MR cervical spine wo/w con CLINICAL HISTORY: RUE paresthesias TECHNIQUE: Sagittal and axial T1, T2 and STIR images were obtained. Images were acquired before and a fter the administration of 7.7 cc of intravenous Gadavist. COMPARISON STUDY: No previous studies for comparison. There are no suspicious areas of marrow replacement. No intrinsic cervical cord lesions are visualize d. C2-3: There is no evidence of disc bulge or focal herniation. There is no spinal or foraminal stenosi s. C3-4: There is no evidence of disc bulge or focal herniation. There is no spinal or foraminal stenosi s. C4-5: There are no disc bulges or focal herniations. There is no spinal or foraminal stenosis. C5-6 :There is a minimal circumferential disc bulge with slight effacement the anterior subarachnoid space. Significant spinal stenosis is not felt to be present. There is minor bilateral foraminal narr owing C6-7: There is no evidence of disc bulge or focal herniation. There is no evidence of spinal or huang inal stenosis. C7-T1: There is no evidence of disc bulge or focal herniation. There is no evidence of spinal or fora bam stenosis. There are foci of increased T2 signal within the right mastoid likely inflammatory Postcontrast images reveal no pathologically enhancing lesions IMPRESSION: 1. Minimal disc bulge at the C5-C6 level 2. No evidence of significant spinal or foraminal stenosis 3. No cord lesions identified ACT 112: Negative or not required by law. Electronically signed by: Mario Gayle M.D. 08/15/2020 7:54 AM
[2020-08-15] MEDS ORDERED: fentaNYL citrate 100 MCG/2 ML VIAL ONE ×2 (08:41→10:17)
[2020-08-15] MEDS ORDERED: MIDAZOLAM HCL 5 MG/ML 1 ML VIAL ONE ×2 (08:41→10:16)
--- NOTE | 2020-08-15 08:58 | Cardiology Consultation ---
Date of Consultation August 15, 2020 Assessment & Plan (1) Mitral valve vegetation: (2) Visual disturbances: (3) Paresthesia of right upper extremity: resting outpatient echocardiogram highly suspicious for mitral valve endocarditis and current clinical context only heightens concern given recent dental work and nonspecific neurologic complaints Initial blood cultures unremarkable from admission but patient already on outpatient Augmentin. He has been n.p.o. after midnight. CHYNA to be performed this a.m. and further recommendations to follow. History of Present Illness Reason for Consultation: Possible mitral valve endocarditis Requesting Physician: Dr. Zhang Attending Physician: Brad Zhang MD History of Present Illness 45 year old male presents for acute cardiology evaluation on 08/14/20 post exercise stress ECHO due to resting echocardiographic findings of possible mitral valve vegetation. Patient recently evaluated in multiple emergency department due to symptoms including visual changes, double vision, paresthesias, and chest discomfort. Evaluated by Neurology, ENT, and Neuro-Ophthalmology. Prescribed Augmentin plus prednisone taper. States symptoms have not improved. Denies focal weakness, slurred speech, facial asymmetry, or gait instability. Notes mild weakness of his left hand last evening, persisting until today. Denies fever however notes subjective chills over the past 3 days. No diaphoresis or unusual shortness of breath. Reports anterior chest soreness which has waxed and waned. Reports undergoing tooth extraction approximately 1 week prior to onset of symptoms in July. Briefly treated with antibiotics for possible dental infection at that time. Allergies Allergy/AdvReac Type Severity Reaction Status Date / Time No Known Allergies Allergy Unknown Verified 08/14/20 17:56 Home Medications Medication Instructions Recorded Confirmed Type lisinopril 10 mg PO QAM 05/07/20 08/14/20 History omeprazole 40 mg PO QAM 05/07/20 08/14/20 History amoxicillin-pot clavulanate 1 tab PO BID 08/14/20 08/14/20 History diphenhydramine HCl [ZzzQuil] 50 mg PO HS PRN 08/14/20 08/14/20 History lorazepam 0.5 mg PO DAILY PRN 08/14/20 08/14/20 History multivitamin 1 tab PO DAILY 08/14/20 08/14/20 History prednisone 0 mg PO .TAPER UD 08/14/20 08/14/20 History Patient History Medical History Arthritis Chronic obstructive pulmonary disease GERD (gastroesophageal reflux disease) Hypertension Insomnia Seasonal allergies Surgical History History of lung surgery "PATCHED RT LUNG" FOR COLLAPSE LUNG- around 2006 [place] teeth removed Family History Other Stroke Social History Smoking Status: Former smoker Smoking End Date: 1989; Second Hand Exposure: Yes ( A CHILD); Hx Alcohol Use: Yes Alcohol type: beer Preferred Language: [place] Communication Ability: Effective Psychometrist Required: No Beliefs That Will Affect Care: None marital status: Current Living Situation: Spouse Other Information That Helps Us Care for You: No Feels Safe at Home: Yes Safety Concerns: Feels Safe At This Time Assistive Devices: None Review of Systems Review of Systems: All systems reviewed & are unremarkable except as noted in HPI & below Physical Exam Physical Exam: Physical Exam: General: Awake, alert and oriented x 3. No acute distress. HEENT: Normocephalic, atraumatic. Pupils equal, round and reactive to light and accommodation. Extraocular muscles are intact. Anicteric sclera. Moist mucous membranes. Neck: No JVD. No bruit. Cardiovascular: Regular. No S-4. Normal S-1 and S-2. No S-3. No murmurs, rubs or gallops. Pulmonary: Clear to auscultation bilaterally. No rales, rhonchi, or wheezing. Abdomen: Bowel sounds x 4, soft. No rebound, guarding or tenderness. No organomegaly. Extremities: No clubbing, cyanosis or edema. +2 pedal pulses bilaterally. Skin: Warm and dry. Results & Data ([facility]) Vital Signs (Past 12 Hours) Vital Signs Temp Pulse Pulse Pulse Resp BP BP 08/15/20 08:09 36.5 C 96 H 17 124/74 08/15/20 07:00 88 08/15/20 04:17 36.4 C L 87 18 123/78 08/14/20 23:53 94 H 08/14/20 22:45 36.5 C 98 H 18 133/90 08/14/20 21:00 106 H 24 133/91 Pulse Ox 08/15/20 08:09 99 08/15/20 07:00 08/15/20 04:17 97 08/14/20 23:53 08/14/20 22:45 99 08/14/20 21:00 96 Laboratory Results Laboratory Results - last 24 hr 08/14/20 08/14/20 08/14/20 16:48 16:48 16:48 WBC 8.56 RBC 4.88 Hgb 14.9 Hct 42.6 MCV 87.3 MCH 30.5 MCHC 35.0 RDW Std Deviation 41.0 RDW Coeff of Dorian 12.8 Plt Count 300 MPV 10.3 Immature Gran % (Auto) 0.5 Neut % (Auto) 72.5 Lymph % (Auto) 22.1 [place] % (Auto) 4.6 Eos % (Auto) 0.1 Baso % (Auto) 0.2 Neut # (Auto) 6.21 Lymph # (Auto) 1.89 [place] # (Auto) 0.39 Eos # (Auto) 0.01 Baso # (Auto) 0.02 Immature Gran # (Auto) 0.04 H ESR PT 10.7 INR 1.0 APTT 25.6 PTT Ratio 0.9 Sodium 137 Potassium 3.8 Chloride 104 Carbon Dioxide 26 Anion Gap 7.0 BUN 13 Creatinine 0.94 Est Cr Clr Drug Dosing 93.8 Est GFR ( Amer) 113.8 Est GFR (Non-Af Amer) 98.2 BUN/Creatinine Ratio 13.3 Glucose 105 H Lactate Calcium 9.9 Total Bilirubin 0.5 AST 19 ALT 60 Alkaline Phosphatase 74 Troponin I < 0.015 C-Reactive Protein Total Protein 8.9 H Albumin 4.9 Globulin 4.0 Albumin/Globulin Ratio 1.2 COVID-19 Eval Order SARS-CoV-2 (PCR) Influenza Type A (PCR) Influenza Type B (PCR) RSV (RT-PCR) SARS-CoV-2 Ag (Rapid) 08/14/20 08/14/20 08/14/20 16:48 16:48 18:09 WBC RBC Hgb Hct MCV MCH MCHC RDW Std Deviation RDW Coeff of Dorian Plt Count MPV Immature Gran % (Auto) Neut % (Auto) Lymph % (Auto) [place] % (Auto) Eos % (Auto) Baso % (Auto) Neut # (Auto) Lymph # (Auto) [place] # (Auto) Eos # (Auto) Baso # (Auto) Immature Gran # (Auto) ESR 12 PT INR APTT PTT Ratio Sodium Potassium Chloride Carbon Dioxide Anion Gap BUN Creatinine Est Cr Clr Drug Dosing Est GFR ( Amer) Est GFR (Non-Af Amer) BUN/Creatinine Ratio Glucose Lactate 1.6 Calcium Total Bilirubin AST ALT Alkaline Phosphatase Troponin I C-Reactive Protein < 0.29 Total Protein Albumin Globulin Albumin/Globulin Ratio COVID-19 Eval Order SARS-CoV-2 (PCR) Influenza Type A (PCR) Influenza Type B (PCR) RSV (RT-PCR) SARS-CoV-2 Ag (Rapid) 08/14/20 08/14/20 08/14/20 18:46 23:40 23:40 WBC RBC Hgb Hct MCV MCH MCHC RDW Std Deviation RDW Coeff of Dorian Plt Count MPV Immature Gran % (Auto) Neut % (Auto) Lymph % (Auto) [place] % (Auto) Eos % (Auto) Baso % (Auto) Neut # (Auto) Lymph # (Auto) [place] # (Auto) Eos # (Auto) Baso # (Auto) Immature Gran # (Auto) ESR PT INR APTT PTT Ratio Sodium Potassium Chloride Carbon Dioxide Anion Gap BUN Creatinine Est Cr Clr Drug Dosing Est GFR ( Amer) Est GFR (Non-Af Amer) BUN/Creatinine Ratio Glucose Lactate Calcium Total Bilirubin AST ALT Alkaline Phosphatase Troponin I C-Reactive Protein Total Protein Albumin Globulin Albumin/Globulin Ratio COVID-19 Eval Order CovFluRsv at [facility] SARS-CoV-2 (PCR) NEGATIVE Influenza Type A (PCR) Negative Influenza Type B (PCR) Negative RSV (RT-PCR) Negative SARS-CoV-2 Ag (Rapid) Negative 08/15/20 08/15/20 06:43 06:43 WBC 7.70 RBC 4.21 L Hgb 12.7 L Hct 37.5 L MCV 89.1 MCH 30.2 MCHC 33.9 RDW Std Deviation 40.5 RDW Coeff of Dorian 12.7 Plt Count 225 MPV 10.4 Immature Gran % (Auto) Neut % (Auto) Lymph % (Auto) [place] % (Auto) Eos % (Auto) Baso % (Auto) Neut # (Auto) Lymph # (Auto) [place] # (Auto) Eos # (Auto) Baso # (Auto) Immature Gran # (Auto) ESR PT INR APTT PTT Ratio Sodium 140 Potassium 3.3 L Chloride 106 Carbon Dioxide 29 Anion Gap 5.0 BUN 15 Creatinine 0.88 Est Cr Clr Drug Dosing 100.2 Est GFR ( Amer) 121.1 Est GFR (Non-Af Amer) 104.5 BUN/Creatinine Ratio 16.5 Glucose 77 Lactate Calcium 8.6 Total Bilirubin AST ALT Alkaline Phosphatase Troponin I C-Reactive Protein Total Protein Albumin Globulin Albumin/Globulin Ratio COVID-19 Eval Order SARS-CoV-2 (PCR) Influenza Type A (PCR) Influenza Type B (PCR) RSV (RT-PCR) SARS-CoV-2 Ag (Rapid) Diagnostic Findings Exercise stress echo report summary August 14, 2020: Resting study: There is a moderate sized mobile echodensity adherent to the anterior mitral valve leaflet or chordae insertion. Systolic anterior motion of the echodensity noted. Differential diagnosis includes vegetation, thrombus, or calcified/thickened redundant and or dissected chordae. Significant mitral regurgitation is absent. Small loculated right lateral pericardial effusion. The qualitative LV ejection fraction is 55-59% (normal). The left ventricular diastolic function is mildly abnormal (grade I). Stress Study: The stress echo is negative for inducible ischemia. Sinus tachycardia was noted at rest. MRI of the brain report August 02, 2020: 1. No evidence of acute ischemia, hemorrhage, or mass effect. Unremarkable a ppearance of the midbrain, tectum, and occipital cortices. 2. 15 mm x 9 mm focus of T1 and T2 hyperintensity in the right petrous apex. Differential includes cholesterol granuloma or hydrated mucocele. Consider further evaluation with CT scan of the temporal bones. 3. Scattered foci of T2 hyperintensity in the subcortical white matter bilaterally, without restricted diffusion, a non-specific finding which most commonly reflects chronic small vessel ischemic change (if the patient has appropriate risk factors). Otherwise, prior head trauma, inflammatory/autoimmune demyelinating disease, toxic, embolic and vasospastic etiologies (including migraine headaches) are in the differential diagnosis. Medications Administered Current Inpatient Medications Acetaminophen (Acetaminophen 325 Mg Tab) 650 mg PO Q4H PRN PRN Reason: Pain or Fever Stop: 09/13/20 22:17 Last Admin: 08/15/20 07:39 Dose: 650 mg Documented by: Sodium Chloride (Nss 1000ml) 1,000 mls @ 125 mls/hr IV .Q8H JAGUAR Stop: 09/13/20 17:44 Last Admin: 08/15/20 07:40 Dose: 125 mls/hr Documented by: Piperacillin Sod/Tazobactam (Sod 3.375 gm/ Dextrose) 115 mls @ 28.75 mls/hr IV Q8H JAGUAR; Protocol Stop: 09/26/20 00:00 Last Admin: 08/15/20 07:39 Dose: 28.8 mls/hr Documented by: Daptomycin 400 mg/ Syringe 8 mls @ 4 mls/min IV Q24H JAGUAR; Protocol Stop: 09/26/20 19:59 Lisinopril (Lisinopril 10 Mg Tab) 10 mg PO QAM [facility] Stop: 09/14/20 08:59 Lorazepam (Lorazepam 0.5 Mg Tab) 0.5 mg PO DAILY PRN PRN Reason: Anxiety Stop: 09/13/20 22:17 Miscellaneous Information (Piperacill/Tazobac Consult Active) 1 ea N/A UD PRN PRN Reason: Consult Stop: 09/13/20 18:14 Miscellaneous Information (Daptomycin Consult Active) 1 ea N/A UD PRN PRN Reason: Consult Stop: 09/13/20 18:14 Multivitamins (Multivitamin Tab) 1 tab PO DAILY [facility] Stop: 09/14/20 08:59 Ondansetron HCl (Ondansetron Inj 2 Mg/Ml 2 Ml Vial) 4 mg IV Q6H PRN PRN Reason: Nausea Stop: 09/13/20 22:17 Pantoprazole Sodium (Pantoprazole 40 Mg Tab) 40 mg PO QAM [facility] Stop: 09/14/20 08:59 Polyethylene Glycol (Polyethylene (Miralax) 17 Gm Pack) 17 gm PO DAILY PRN PRN Reason: Constipation Stop: 09/13/20 22:17
[2020-08-15] MEDS ORDERED: lisinopril 10 MG TAB PO SCH (09:00)
--- NOTE | 2020-08-15 09:00 | History & Physical Bridge Note ---
Date of Service August 15, 2020 History & Physical Bridge Note I have examined the patient, reviewed the History & Physical and in the interval since the performance of the History & Physical I have noted the following changes of clinical significance: no changes noted
[2020-08-15] MEDS ORDERED: CANNULA ONE (09:27)
--- NOTE | 2020-08-15 10:06 | Pre Anesthesia Assessment ---
Date of Service August 15, 2020 Pre Sedation Assessment Vital Signs Temp Pulse Pulse Pulse Resp BP BP 08/15/20 09:21 96 H 16 142/92 H 08/15/20 08:09 36.5 C 96 H 17 124/74 08/15/20 07:00 88 08/15/20 04:17 36.4 C L 87 18 123/78 08/14/20 23:53 94 H 08/14/20 22:45 36.5 C 98 H 18 133/90 08/14/20 21:00 106 H 24 133/91 08/14/20 20:30 105 H 24 138/98 08/14/20 20:01 105 H 19 08/14/20 20:00 102 H 143/97 H 08/14/20 19:31 118 H 19 08/14/20 19:30 115 H 138/93 08/14/20 19:01 96 H 20 08/14/20 19:00 94 H 98 H 22 127/97 127/97 08/14/20 17:40 08/14/20 17:39 102 H 20 137/98 08/14/20 17:33 107 H 107 H 16 137/98 08/14/20 16:03 37.0 C 121 H 19 142/105 H Pulse Ox 08/15/20 09:21 100 08/15/20 08:09 99 08/15/20 07:00 08/15/20 04:17 97 08/14/20 23:53 08/14/20 22:45 99 08/14/20 21:00 96 08/14/20 20:30 96 08/14/20 20:01 98 08/14/20 20:00 98 08/14/20 19:31 97 08/14/20 19:30 98 08/14/20 19:01 98 08/14/20 19:00 98 08/14/20 17:40 97 08/14/20 17:39 97 08/14/20 17:33 97 08/14/20 16:03 99 Pre-Sedation Airway Assessment Smoking Status: Former smoker Hx Sleep Apnea: No Short, Thick Neck: No Thyromental Distance: > or= 3.5 Finger Breadths Oral Cavity: + Dentures Mallampati Class: IV ASA: ASA3 NPO Status Date of Last Intake of Fluids: 08/15/20 Time of Last Intake of Fluids: 08:00 Last Oral Intake of Fluids Comment: sip with meds Date of Last Intake of Solid Food: 08/14/20 Time of Last Intake of Solid Foods: 18:30 Notes The planned sedation has been discussed with the patient. Informed Consent was obtained. I have identified the patient, determined the appropriateness of sedation and have assessed the patient immediately prior to the procedure. All medicine(s) and interventions are by my order.
--- NOTE | 2020-08-15 10:45 | Post Anesthesia Assessment ---
Date of Service August 15, 2020 Post Sedation Assessment Vital Signs Temp Pulse Pulse Pulse Resp BP BP 08/15/20 10:40 102 H 16 124/78 08/15/20 10:35 94 H 16 117/76 08/15/20 10:30 94 H 16 118/79 08/15/20 10:25 85 16 113/74 08/15/20 10:20 82 16 119/79 08/15/20 10:15 90 16 124/80 08/15/20 10:10 100 H 16 136/91 08/15/20 09:21 96 H 16 142/92 H 08/15/20 08:09 36.5 C 96 H 17 124/74 08/15/20 07:00 88 08/15/20 04:17 36.4 C L 87 18 123/78 08/14/20 23:53 94 H 08/14/20 22:45 36.5 C 98 H 18 133/90 08/14/20 21:00 106 H 24 133/91 08/14/20 20:30 105 H 24 138/98 08/14/20 20:01 105 H 19 08/14/20 20:00 102 H 143/97 H 08/14/20 19:31 118 H 19 08/14/20 19:30 115 H 138/93 08/14/20 19:01 96 H 20 08/14/20 19:00 94 H 98 H 22 127/97 127/97 08/14/20 17:40 08/14/20 17:39 102 H 20 137/98 08/14/20 17:33 107 H 107 H 16 137/98 08/14/20 16:03 37.0 C 121 H 19 142/105 H Pulse Ox 08/15/20 10:40 100 08/15/20 10:35 100 08/15/20 10:30 100 08/15/20 10:25 100 08/15/20 10:20 100 08/15/20 10:15 100 08/15/20 10:10 100 08/15/20 09:21 100 08/15/20 08:09 99 08/15/20 07:00 08/15/20 04:17 97 08/14/20 23:53 08/14/20 22:45 99 08/14/20 21:00 96 08/14/20 20:30 96 08/14/20 20:01 98 08/14/20 20:00 98 08/14/20 19:31 97 08/14/20 19:30 98 08/14/20 19:01 98 08/14/20 19:00 98 08/14/20 17:40 97 08/14/20 17:39 97 08/14/20 17:33 97 08/14/20 16:03 99 Recovery Score Activity: Moves 4 extremities Respiration: Deep Breath/Cough Circulation: +/-20% PreAnes Value Consciousness: Fully Awake Oxygen Saturation: > 92% On Room Air Post Anesthesia Score: 10 Discharge Sedation Level of Care: Fast Track Phase II Post Sedation Plan On clinical assessment, the patient appears to have tolerated the sedation without complications. Patient is recovering as anticipated. Patient will continue to be monitored by nursing and may be discharged when sedation discharge criteria are met per below protocol. Upon Completions of procedure up to 15 minutes continue every 5 minute vital signs and the P.A.R. score; then discharge to a Phase I or Fast Track to Phase II per the following guidelines: * Discharge Patient to appropriate Phase II area if PAR is 8 or greater or return to pre- procedure baseline. The post - procedure orders will be as directed. * If PAR score is less than 8 or not return to pre-procedure baseline then patient will follow Phase I monitoring till PAR is reached for Phase II. The Phase I may be done in procedure room or may call to secure a Phase I area. * If naloxone or flumazenil are used for reversal, hold in Phase I for continued monitoring from when last reversal dose was given for a minimum of 60 minutes or longer pending the nurse and/or physician discretion of patient condition before discharge to Phase II. Please call the Sedation Physician to re-evaluate and complete post-note for discharge to Phase II area. Do NOT discharge from procedure sedation or Phase 1 until post- sedation evaluation note is complete by procedure /sedation MD Sedation Discharge Instructions to be given to the patient at discharge to home.
--- NOTE | 2020-08-15 10:47 | Operative Report ---
Post Operative Report Pre & Post Diagnosis Operation Date: 08/15/20 08:30 <No data on this case meets the specified criteria> I identified the patient and participated in the time-out.: Yes Procedure Operation Date: 08/15/20 08:30 Actual Procedures p Echo Transesophageal - Abhishek Mckeon, s Echo Doppler Complete - Abhishek Mckeon DO s Echo Color Flow - Abhishek Mckeon DO Informed consent obtained. Patient prepped. Adequate moderate sedation achieved with a total of 5 mg of Versed and 125 mcg of fentanyl. See separate CHYNA report. Patient tolerated well. No complications. Start time: 1015 Stop time: 1040 Plan: Recovered per protocol. Return to telemetry. Continue to follow blood cultures. Surgeon Abhishek Mckeon DO [employer] [facility] Estimated Blood Loss 0 Findings Consistent with Post-Op Diagnosis Specimens none Description of Procedure CHYNA I attest to the content of the Intraoperative Record and any orders documented therein. Any exceptions are noted below.
[2020-08-15] MEDS: PANTOprazole 40 MG TAB PO SCH (12:31)
[2020-08-15] MEDS: MULTIVITAMIN TAB PO SCH (12:31)
[2020-08-15] MEDS ORDERED: HYDROmorphone INJ 0.5 MG/0.5 ML SYR IV PRN (14:13)
--- NOTE | 2020-08-15 14:18 | Neurology Consultation ---
Date of Consultation August 15, 2020 Assessment & Plan (1) Paresthesia of right upper extremity: 1. MRI brain, c spine with no evidence of lesions- R petrous bone effusion 2. CHYNA -no vegetation seen per verbal report 3. neuroophthalmology evaluation done at [facility] 4. currently no fever or elevated WBC 5. tooth extraction in July unclear if this is related 6. treat headache with magnesium 400 mg daily and tylenol prn Present on Admission?: Yes (2) Visual disturbances: Present on Admission?: Yes (3) Mitral valve vegetation: Present on Admission?: Yes Supervising Physician Co-Signing Physician Notes I have seen and discussed above patient with Dr Alem Garsia, neurology. PT seen and examined. hx vairble. painless blurred visiona r eye. Monocular double vision.non positional paresthesias r arm.Sx did not occur in setting of [place]. Neuro-othat evak nml, neg Ach rec ab, nml esr. mri mri brain ,mra head and neck. NML esr wbc Exam notable for pos Tinels at R wrist, co nubmness r face but it is colder to temp. Pt splits a tuning fork r arm, although the anesthetitic arm appreciates cold better than left. Imp: subjextive complaint blurred vision, no ocular abnl, Monocular double vision which either represents lens pblm or is none physiologic P, monitor, no obvious etiology for pt sx. Reassuring that no valvular vegetations. white matter changes, likely related to vascular risk factors or mi. pt has headache today. No evidence of intracranial hypotension by hx, no concerning signs of ecam? related to r petrous effusion. ROBIN Garsia MD History of Present Illness Reason for Consultation: visual changes, RUE paresthesias Requesting Physician: Brad Zhang MD Attending Physician: Brad Zhang MD History of Present Illness Felix is a 45 year old male with PMH -COPD, hypertension, GERD, recent L5-S1 fusion. He presented from cardiology clinic due to concern for possible mitral valve endocarditis seen on 2D echocardiogram today. he has a complex recent health history, starting with undergoing a tooth extraction in mid July and then developed neurological symptoms including visual changes and right sided paresthesias. He was evaluated at [facility] where he had a telestroke evaluation with CT Head negative for acute pathology and diagnosed with acute anxiety and given Ativan at that time, which improved paresthesias and and was discharged visual symptoms persisted. 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 He was sent to [facility] ED for evaluation with brain MRI on 08/02, which did not show evidence of acute ischemia, hemorrhage, or mass effect. + scattered foci of T2 hyperintensity in the subcortical white matter bilaterally, without restricted diffusion, a non- specific finding which most commonly reflects chronic small vessel ischemic change. AchR ab was ordered to evaluate for myasthenia gravis and was negative. During this workup, patient was found to have a right petrous bone effusion. ENT saw him for this and tinnitus he was started on oral steroids and Augmentin and has been taking them for 1.5 weeks. He also had an MRA head and neck which were unremarkable. He had a exercise stress echo and findings of resting echo were concerning for possible mitral valve vegetation "moderate sized mobile echodensity adherent to the anterior mitral valve leaflet or chordae insertion. Differential diagnosis includes vegetation, thrombus or calcified/thickened redundant and/or dissected chordae" and here was concern for possible mitral valve endocarditis. He had a CHYNA today results pending. His only new complaint. denies CP, SOB, abdominal pain, one sided weakness, numbness tingling, new bowel or bladder issues, +tinnitus, + headache, +blurred vision Allergies Allergy/AdvReac Type Severity Reaction Status Date / Time No Known Allergies Allergy Unknown Verified 08/14/20 17:56 Home Medications Medication Instructions Recorded Confirmed Type lisinopril 10 mg PO QAM 05/07/20 08/14/20 History omeprazole 40 mg PO QAM 05/07/20 08/14/20 History amoxicillin-pot clavulanate 1 tab PO BID 08/14/20 08/14/20 History diphenhydramine HCl [ZzzQuil] 50 mg PO HS PRN 08/14/20 08/14/20 History lorazepam 0.5 mg PO DAILY PRN 08/14/20 08/14/20 History multivitamin 1 tab PO DAILY 08/14/20 08/14/20 History prednisone 0 mg PO .TAPER UD 08/14/20 08/14/20 History Patient History Medical History Arthritis Chronic obstructive pulmonary disease GERD (gastroesophageal reflux disease) Hypertension Insomnia Seasonal allergies Surgical History History of lung surgery "PATCHED RT LUNG" FOR COLLAPSE LUNG- around 2006 [place] teeth removed Family History Other Stroke Social History Smoking Status: Former smoker Smoking End Date: 1989; Second Hand Exposure: Yes ( A CHILD); Hx Alcohol Use: Yes Alcohol type: beer Hx Substance Use: No Preferred Language: Central [place] Communication Ability: Effective 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 Beliefs That Will Affect Care: None marital status: Current Living Situation: Spouse Other Information That Helps Us Care for You: No Feels Safe at Home: Yes Safety Concerns: Feels Safe At This Time Assistive Devices: None Review of Systems Review of Systems: All systems reviewed & are unremarkable except as noted in HPI & below and All systems reviewed & are unremarkable except as noted in Subjective Physical Exam Physical Exam: Physical Exam: Constitutional: appearance nourished, healthy and normal Ears, Nose, Mouth and Throat: mucous membranes moist, no injection and skin normal, eyes normal Cardiovascular: normal S-1 and S-2 and regular rate and rhythm Respiratory: course breath sounds Musculoskeletal: no peripheral edema and good distal pulses Skin: no stigmata of neurocutaneous disease noted and normal and intact Eyes: extraocular muscles intact (EOMI) gross visual mandujano intact NEUROLOGIC EXAMINATION: Mental status: Alert and interactive Oriented to full date and location Oriented to person Speech fluent with no evidence of aphasia Cranial Nerves smile eye brow raise symmetric Reflexes: Deep tendon reflexes were symmetrical and graded 2/5. down going toes Sensory: intact to vibration and light touch Coordination: finger to nose no bipass Gait/Stance: Posture normal. Motor: Negative for pronator drift of out stretched arms with eyes closed. Strength: hand legal administrator biceps triceps deltoids 5/5 bilaterally hip flex plantar flex ext bilaterally 5/5 Results & Data ([facility]) Vital Signs (Past 12 Hours) Vital Signs Temp Pulse Pulse Pulse Resp BP Pulse Ox 08/15/20 11:49 36.4 C L 85 17 116/77 97 08/15/20 11:15 36.8 C 90 18 122/81 96 08/15/20 10:54 94 H 17 123/91 97 08/15/20 10:40 102 H 101 H 16 138/95 97 08/15/20 10:35 94 H 16 117/76 100 08/15/20 10:30 94 H 16 118/79 100 08/15/20 10:25 85 16 113/74 100 08/15/20 10:20 82 16 119/79 100 08/15/20 10:15 90 16 124/80 100 08/15/20 10:10 100 H 16 136/91 100 08/15/20 09:21 96 H 16 142/92 H 100 08/15/20 08:09 36.5 C 96 H 17 124/74 99 08/15/20 07:00 88 08/15/20 04:17 36.4 C L 87 18 123/78 97 Laboratory Results Abnormal lab results 08/14/20 08/14/20 08/15/20 Range/Units 16:48 16:48 06:43 RBC 4.21 L (4.7-6.1) M/uL Hgb 12.7 L (14.0-18.0) g/dL Hct 37.5 L (42-52) % Immature Gran # (Auto) 0.04 H (0.00-0.02) K/uL Potassium (3.5-5.1) mmol/L Glucose 105 H (70-99) mg/dl Total Protein 8.9 H (6.4-8.2) gm/dl 08/15/20 Range/Units 06:43 RBC (4.7-6.1) M/uL Hgb (14.0-18.0) g/dL Hct (42-52) % Immature Gran # (Auto) (0.00-0.02) K/uL Potassium 3.3 L (3.5-5.1) mmol/L Glucose (70-99) mg/dl Total Protein (6.4-8.2) gm/dl Diagnostic Findings MRI brain-. No acute intracranial findings. No intracranial mass or pathologic enhancement. Several subcortical white matter T2 hyperintense foci. Although nonspecific, findings likely reflect small vessel disease. MRI c spine- Minimal disc bulge at the C5-C6 level No evidence of significant spinal or foraminal stenosis No cord lesions identified TTE pending report
--- NOTE | 2020-08-15 14:19 | Electrocardiogram Report ---
Test Reason : Blood Pressure : / mmHG Vent. Rate : 112 BPM Atrial Rate : 112 BPM P-R Int : 128 ms QRS Dur : 102 ms QT Int : 320 ms P-R-T Axes : 054 026 034 degrees QTc Int : 436 ms Sinus tachycardia Otherwise normal ECG When compared with ECG of 08-MAY-2020 14:28, No significant change was found Confirmed by Kenan Pisano ([id number]) on 08/15/2020 2:19:17 PM Referred By: Silvina Montelongo Confirmed By:Kenan Pisano
--- NOTE | 2020-08-15 14:49 | Electrocardiogram Report ---
Test Reason : Blood Pressure : / mmHG Vent. Rate : 092 BPM Atrial Rate : 092 BPM P-R Int : 120 ms QRS Dur : 092 ms QT Int : 336 ms P-R-T Axes : 036 007 041 degrees QTc Int : 415 ms Normal sinus rhythm Normal ECG When compared with ECG of 14-AUG-2020 16:09, (unconfirmed) No significant change was found Confirmed by Kenan Pisano ([id number]) on 08/15/2020 2:49:04 PM Referred By: Silvina Montelongo Confirmed By:Kenan Pisano
--- NOTE | 2020-08-15 14:59 | Hospitalist Progress Note ---
Date of Service August 15, 2020 Assessment & Plan (1) Mitral valve vegetation: as per Neurology Consult history "45 year old male with PMH -COPD, hypertension, GERD, recent L5-S1 fusion. He presented from cardiology clinic due to concern for possible mitral valve endocarditis seen on 2D echocardiogram today. he has a complex recent health history, starting with undergoing a tooth extraction in mid July and then developed neurological symptoms including visual changes and right sided paresthesias. He was evaluated at [facility] where he had a telestroke evaluation with CT Head negative for acute pathology and diagnosed with acute anxiety and given Ativan at that time, which improved paresthesias and and was discharged visual symptoms persisted. 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 He was sent to [facility] ED for evaluation with brain MRI on 08/02, which did not show evidence of acute ischemia, hemorrhage, or mass effect. + scattered foci of T2 hyperintensity in the subcortical white matter bilaterally, without restricted diffusion, a non- specific finding which most commonly reflects chronic small vessel ischemic change. AchR ab was ordered to evaluate for myasthenia gravis and was negative. During this workup, patient was found to have a right petrous bone effusion. ENT saw him for this and tinnitus he was started on oral steroids and Augmentin and has been taking them for 1.5 weeks. He also had an MRA head and neck which were unremarkable. He had a exercise stress echo and findings of resting echo were concerning for possible mitral valve vegetation "moderate sized mobile echodensity adherent to the anterior mitral valve leaflet or chordae insertion." -patient was sent to the ED on 08/14/2020 for further cardiac workup. was admitted. empirically started on Zosyn and Daptomycin and cardiology/neurology service consulted -CHYNA performed on 08/15/2020 and results pending. follow admission blood cultures (2) Visual disturbances: due to convergence insufficiency -patient self reports that vision is normal from distance, but with his right eye he reports that vision up close is blurred -Brain MRI 08/14/2020 : No acute intracranial findings, No intracranial mass or pathologic enhancement, Several subcortical white matter T2 hyperintense foci. Although nonspecific, findings likely reflect small vessel disease. -Cervical spine 08/14/2020: Minimal disc bulge at the C5-C6 level, No evidence of significant spinal or foraminal stenosis, No cord lesions identified (3) Paresthesia of right upper extremity: -appears to be intermittent in nature -no pain today as per the patient 08/15/2020 (4) Hypertension: -on lisnipril (5) Chronic obstructive pulmonary disease: Stable (6) GERD (gastroesophageal reflux disease): Continue PPI Code status: FULL PCP: Jayda DVT ppx: SCDs for now Admission and Anticipated Discharge Date Admission Date: August 14, 2020 Subjective Patient seen and examined after he returned from [facility]. patient reports headache but no new symptoms. He denies chest pain or shortness of breath or fevers at home. He reports he has been able to urinate. He denies problems with bowel movements. he denies other symptoms on review of systems Review of Systems Review of Systems: All systems reviewed & are unremarkable except as noted in Subjective Physical Exam Constitutional: comfortable Eyes: PERRL, conjunctivae normal, anicteric sclerae EOM intact bilaterally ENMT: external ear and nose normal, oropharynx normal Neck: normal visual inspection Respiratory: normal respiratory effort, lungs clear to auscultation Cardiovascular: Rate/Rhythm: regular rate Gastrointestinal (Abdomen): normal bowel sounds, soft, nontender, no hepatosplenomegaly Musculoskeletal: Head/Neck/Chest: normocephalic and head atraumatic Neurologic: PERRL, EOMI, accommodation nl, no face palsy, no dysarthria moves all extremities Psychiatric: A+Ox3, euthymic affect Results & Data Results & Data ([facility]) Vital Signs (Past 12 Hours) Vital Signs Temp Pulse Pulse Pulse Resp BP Pulse Ox 08/15/20 11:49 36.4 C L 85 17 116/77 97 08/15/20 11:15 36.8 C 90 18 122/81 96 08/15/20 10:54 94 H 17 123/91 97 08/15/20 10:40 102 H 101 H 16 138/95 97 08/15/20 10:35 94 H 16 117/76 100 08/15/20 10:30 94 H 16 118/79 100 08/15/20 10:25 85 16 113/74 100 08/15/20 10:20 82 16 119/79 100 08/15/20 10:15 90 16 124/80 100 08/15/20 10:10 100 H 16 136/91 100 08/15/20 09:21 96 H 16 142/92 H 100 08/15/20 08:09 36.5 C 96 H 17 124/74 99 08/15/20 07:00 88 08/15/20 04:17 36.4 C L 87 18 123/78 97
[2020-08-15] MEDS: oxyCODONE HCL IR 5 MG TAB (IMMEDIATE RELEASE) PO PRN ×2 (15:22→23:59)
--- NOTE | 2020-08-15 16:51 | Communication Note ---
Date of Service: August 15, 2020 Neurology service was informed by cardiology Dr. Mckeon that there is no infectious endocarditis by CHYNA. It would appear reasonable then to stop IV ant ibiotics at this time. his admission blood cultures are pending and can be followed. overall patient is not satisfied with current neurology workup to date despite no significant abnormal findings on Head and cervical MRI. patient is convinced that he has something wrong such as a spinal fluid leak. hospitalist discussed with patient that an MRI of lower spine can be considered but would not recommend this to be performed until tomorrow on 08/16/2020 to prevent contrast induced renal injury due to recent MRI scans with contrast. patient is to stay overnight for 08/16/2020 re-assessment
[2020-08-15] MEDS: ACETAMINOPHEN 325 MG TAB PO PRN (19:26)
[2020-08-15] MEDS ORDERED: DAPTOmycin 400 MG in SYRINGE 0 ML IV SCH (20:00)
[2020-08-15] MEDS ORDERED: traMADol HCL 50 MG TABLET PO STA (23:23)
[2020-08-16 06:32] LABS: Hematocrit (blood only) 40.5 % (42-52); Hemoglobin 13.9 g/dL (14.0-18.0); Mean Corpuscular Hemoglobin 30.3 pg (25-34); Mean Corpuscular Hgb Conc 34.3 g/dL (32-36); Mean Corpuscular Volume 88.2 fL (80-100); Mean Platelet Volume 10.3 fL (7.4-10.4); Platelet Count 261 K/uL (130-400); RDW Coefficient of Variation 12.7 % (11.5-14.5); RDW Standard Deviation 40.8 fL (36.4-46.3); Red Blood Count 4.59 M/uL (4.7-6.1); White Blood Count 6.57 K/uL (4.8-10.8)
[2020-08-16 06:58] LABS: BUN Creatinine Ratio 12.2 (10-20); Calcium 9.1 mg/dl (8.5-10.1); Creatinine Clr Calc Pharmacy 101.3 ml/min; Est GFR (African American) 121.7; Potassium 3.5 mmol/L (3.5-5.1)
[2020-08-16] MEDS ORDERED: LORazepam 0.5 MG/1 ML VIAL IV PRN (07:07)
[2020-08-16] MEDS: MULTIVITAMIN TAB PO SCH (07:36)
[2020-08-16] MEDS: PANTOprazole 40 MG TAB PO SCH (07:36)
[2020-08-16] MEDS: ACETAMINOPHEN 325 MG TAB PO PRN (07:39)
[2020-08-16] MEDS ORDERED: POTASSIUM CHLORIDE CRTAB 20 MEQ TABCR PO STA (08:12)
--- NOTE | 2020-08-16 08:20 | Hospitalist Progress Note ---
Date of Service August 16, 2020 Assessment & Plan (1) Ruptured chordae tendineae: RULED OUT MITRAL VALVE VEGETATION -as per Neurology Consult history "45 year old male with PMH -COPD, hypertension, GERD, recent L5-S1 fusion. He presented from cardiology clinic due to concern for possible mitral valve endocarditis seen on 2D echocardiogram today. he has a complex recent health history, starting with undergoing a tooth extraction in mid July and then developed neurological symptoms including visual changes and right sided paresthesias. He was evaluated at [facility] where he had a telestroke evaluation with CT Head negative for acute pathology and diagnosed with acute anxiety and given Ativan at that time, which improved paresthesias and and was discharged visual symptoms persisted. 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 He was sent to [facility] for evaluation with brain MRI on 08/02, which did not show evidence of acute ischemia, hemorrhage, or mass effect. + scattered foci of T2 hyperintensity in the subcortical white matter bilaterally, without restricted diffusion, a non- specific finding which most commonly reflects chronic small vessel ischemic change. AchR ab was ordered to evaluate for myasthenia gravis and was negative. During this workup, patient was found to have a right petrous bone effusion. ENT saw him for this and tinnitus he was started on oral steroids and Augmentin and has been taking them for 1.5 weeks. He also had an MRA head and neck which were unremarkable. He had a exercise stress echo and findings of resting echo were concerning for possible mitral valve vegetation "moderate sized mobile echodensity adherent to the anterior mitral valve leaflet or chordae insertion." -patient was sent to the ED on 08/14/2020 for further cardiac workup. was admitted. empirically started on Zosyn and Daptomycin and cardiology/neurology service consulted -CHYNA performed on 08/15/2020 and results RULED OUT MITRAL VALVE VEGETATION as no vegetations were visualized by CHYNA - Instead the echodensity abnormality is a "Ruptured chordae tendonea visualized resulting in prolapse of the A2 mitral valve leaflet segment without mitral regurgitation. Antibiotics were stopped in evening of 08/16/2020 -blood cultures no growth to date as of 08/16/2020, patient apparently had nausea overnight and mild tachycardia. He also complains of headache that has persisted since yesterday but somewhat getter better. Patient is breathing on room air. No shortness of breath. No chest pain. Patient denies other current symptoms on review of systems. Patient asked to ambulate as tolerated - he denies dizziness with walking. MRI of the Thoracic and Lumbar spine are ordered for 08/16/2020. 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 Although nonspecific, findings likely reflect small vessel disease. -Cervical spine 08/14/2020: Minimal disc bulge at the C5-C6 level, No evidence of significant spinal or foraminal stenosis, No cord lesions identified -although Brain and cervical spine MRI are unrevealing in further delineating the history of visual symptoms, paraesthesias; patient is convinced that he has something wrong such as a spinal fluid leak as he also has been complaining of headaches recently. MRI of the Thoracic and Lumbar spine are ordered for 08/16/2020 (3) Paresthesia of right upper extremity: -appears to be intermittent in nature -no pain today as per the patient 08/15/2020 -management as above (4) Hypertension: -on lisinopril held for 08/16/2020 while patient to get the MRI studies with contrast (5) Chronic obstructive pulmonary disease: Stable (6) GERD (gastroesophageal reflux disease): Continue PPI Code status: FULL PCP: Jayda VERONICA ppx: SCDs for now Admission and Anticipated Discharge Date Admission Date: August 14, 2020 Subjective -blood cultures no growth to date as of 08/16/2020, patient apparently had nausea overnight and mild tachycardia. He also complains of headache that has persisted since yesterday but somewhat getter better. Patient is breathing on room air. No shortness of breath. No chest pain. Patient denies other current symptoms on review of systems. Patient asked to ambulate as tolerated - he denies dizziness with walking. MRI of the Thoracic and Lumbar spine are ordered for 08/16/2020. Review of Systems Review of Systems: All systems reviewed & are unremarkable except as noted in Subjective Physical Exam Constitutional: cooperative and comfortable Eyes: PERRL, conjunctivae normal, anicteric sclerae EOM intact bilaterally ENMT: external ear and nose normal, oropharynx normal Neck: normal visual inspection Respiratory: normal respiratory effort, lungs clear to auscultation Cardiovascular: Rate/Rhythm: regular rhythm and + tachycardic Gastrointestinal (Abdomen): normal bowel sounds, soft, nontender, no hepatosplenomegaly Musculoskeletal: Head/Neck/Chest: normocephalic and head atraumatic Neurologic: PERRL, EOMI, accommodation nl, no face palsy, no dysarthria moves all extremities Psychiatric: A+Ox3, euthymic affect Results & Data Results & Data ([facility]) Vital Signs (Past 12 Hours) Vital Signs Temp Pulse Pulse Pulse Resp BP Pulse Ox 08/16/20 07:42 119 H 08/16/20 03:44 36.9 C 101 H 18 109/68 95 08/16/20 00:06 89 08/15/20 23:28 36.6 C 105 H 18 120/74 98
--- NOTE | 2020-08-16 11:20 | Progress Notes ---
DATE: 08/16/2020 SUBJECTIVE: I am seeing Mr. Hooker in followup for a variety of symptoms since he had lumbar fusion several weeks ago followed by dental work. He continues to feel blurring in the right eye. He has been seen by neurophthalmology. There was some concern as to whether or not he had some convergence insufficiency, although I believe Dr. Forbes, the neuroophthalmologist did not believe that to be true. Two sets of MRIs of the brain showed no acute abnormality. There are some minor changes in the white matter that could be seen with vascular risk factors or migraine. The MRI of the brain performed at our facility was done with and without contrast. There is no evidence of intracranial hypotension such as brainstem sagging or meningeal enhancement. His MRI of the cervical spine is noncontributory with regard to his complaints of numbness in his right arm. He does report some tightness in the bottom of his right foot since he has had lumbar surgery. His headache, which developed yesterday, was consistently better with being upright and worse with being supine. He also has tinnitus since the operation, which is nonpulsatile and not better or worse lying down or upright. OBJECTIVE: On exam, he is awake and alert, very concerned appropriately. Blood pressure 123/87, pulse 105, temperature 37.7. He is awake and alert, normal speech and language. No significant paracervical tenderness or deformity. His neck is supple. His lumbar scar is well healing, not warm or tender. His pupils are equal. There is no afferent pupillary defect. I saw his right optic nerve, which appeared unremarkable. I had more difficulty with the left. His mandujano were full, motility is normal. I think his convergence is fairly normal. There is normal facial sensation and facial symmetry. Speech is normal. Motor is full. No drift. Normal rapid alternating movements. Reflexes are mildly diffusely brisk. There is no clonus. Toes are downgoing. The right upper extremity is colder to temperature than the left, but light touch is symmetric as is vibration. The right side is the side that the patient says is anesthetic. LABORATORIES: His blood cultures have been negative. White count is 6.57. His sed rate on admission was normal. IMPRESSION AND PLAN: This patient has a variety of neurologic symptoms, some blurring of vision in his right eye without any findings. I do not see any evidence of optic neuropathy. There is no evidence of papilledema. His headache is relatively new. There are no meningeal signs and his MRI of the brain shows no evidence of intracranial hypotension if he were to have a post-spinal surgery cerebrospinal fluid leak. Dr. Zhang has planned to do an MRI of the thoracic and lumbar spine. I think that is not unreasonable. If the patient is discharged, he should see us in followup. We would likely do a nerve conduction EMG of the right upper extremity. If the patient is still hospitalized tomorrow, I will see him in followup.
[2020-08-16] MEDS ORDERED: GADOBUTROL 65ML VIAL IV ONE (14:08)
--- NOTE | 2020-08-16 15:03 | Magnetic Resonance Report ---
MRI OF THE THORACIC SPINE COMBO CLINICAL HISTORY: Headache. Paresthesias. Clinical concern for spinal fluid leak. COMPARISON STUDY: No priors. TECHNIQUE: MRI of the thoracic spine is performed using various T1 and T2-weighted sequences in the a xial, sagittal, and coronal planes. Contrast-enhanced sequences were acquired following the IV admini stration of 7.5 cc of Gadavist. Cerebrospinal fluid flow studies were performed. FINDINGS: Vertebral body height and alignment are maintained throughout the thoracic spine. Normal ma rrow signal intensity is preserved throughout the visualized bony structures. The transverse and spin ous processes appear intact. No destructive bony lesion is seen. The intervertebral discs are normal in height and signal intensity. The thoracic spinal cord is normal in morphology and signal intensity . The conus medullaris terminates at the level of L1. There is no abnormal postcontrast enhancement. There is no fluid collection identified adjacent to the thecal sac to suggest cerebrospinal fluid maira k. Cerebral spinal flow is normal on the flow studies. The central canal is widely patent. There is n o evidence of neural foraminal narrowing throughout the thoracic region. The paraspinous soft tissues are within normal limits. Imaged lung parenchyma is grossly normal but not well evaluated by MRI. Pearson bcentimeter hepatic cysts are partially imaged. A left renal cyst is partially visualized. IMPRESSION: Normal examination. Dictated: 08/16/2020 2:03 PM Transcribed: 08/16/2020 2:49 PM Alem [id number] [facility]_Lilian Electronically signed by: Manolo Senior M.D. 08/16/2020 3:01 PM
--- NOTE | 2020-08-16 15:24 | Magnetic Resonance Report ---
MRI OF THE LUMBAR SPINE COMBO CLINICAL HISTORY: Headache. Paresthesias. Clinical concern for cerebrospinal fluid leak. COMPARISON STUDY: Radiographs of lumbar spine dated 05/12/2011. Abdominal CT dated 08/29/2007. TECHNIQUE: MRI of the lumbar spine is performed utilizing various T1 and T2-weighted sequences in the axial, sagittal, and coronal planes. Contrast-enhanced sequences are acquired following the IV admin istration of 7.5 cc of Gadavist. Flow studies were performed. FINDINGS: Lumbar spine: There is a mild chronic superior endplate compression deformity of L2. Vertebral body h eight and alignment are otherwise maintained throughout the lumbar spine. There is mild straightening of the lumbar lordosis. There is postoperative change from laminectomy and posterior fusion at L5-S1 . Interpedicular screws are present at both levels. The transverse processes appear intact. There is no evidence of spondylolysis. No destructive bony lesion is seen. Intervertebral discs: There is evidence of discectomy at L5-S1. Degenerative disc desiccation is note d throughout the lumbar spine. The disc spaces are maintained. Spinal cord and central canal: The visualized spinal cord is normal in morphology and signal intensit y. The conus medullaris terminates at the level of L1. No abnormal postcontrast enhancement is identi fied. The nerve roots of the cauda equina are normal in morphology. The central canal is clear. CSF f low is grossly normal in the upper lumbar region. This is not well assessed in the mid to lower lumba r region. T12-L1: Unremarkable. L1-L2: Unremarkable. L2-L3: There is a small posterior disc bulge and annular fissure. The central canal and neural forami na are clear. L3-L4: There is minimal posterior disc bulge, eccentric to the right with annular fissure. This abuts a transiting right-sided nerve root. The central canal is clear. There is mild right-sided subarticu lar stenosis. The neural foramina are patent. L4-L5: There is minimal posterior disc bulge with annular fissure. The central canal is clear. There is bilateral subarticular stenosis, right greater than left. This may abut the exiting right L4 nerve root. In conjunction with facet arthropathy, there is mild bilateral neural foraminal stenosis. L5-S1: The central canal is clear. There is T1 hypointense enhancing soft tissue material along the r ight aspect of the thecal sac and posterior to the thecal sac. This is typical for granulation tissue . This may impinge on the right neural foramen. The left neural foramen is grossly clear. Sacrum: The visualized sacrum is normal in morphology and signal intensity. Soft tissues: Postoperative change is seen at the L5-S1 laminectomy levels. Nonspecific enhancement w ithin this region is consistent with granulation tissue. No organized fluid collection is identified. Specifically, there is no CSF attenuation fluid collection adjacent to the thecal sac to suggest CSF leakage. The retroperitoneal structures are grossly unremarkable but incompletely evaluated. A 4 cm cyst is noted in the left kidney. Subcentimeter hepatic cysts are identified. IMPRESSION: 1. There is no disc herniation or central canal stenosis. 2. There is postoperative change from laminectomy and posterior fusion at L5-S1. 3. Enhancing soft tissue along the right aspect of the thecal sac and posterior to the thecal sac at L5-S1 likely represents granulation tissue. 4. There is no postoperative fluid collection identified. Specifically, there is no fluid collection seen adjacent to the thecal sac to suggest CSF leakage. 5. Mild spondylotic change as above. Dictated: 08/16/2020 2:18 PM Transcribed: 08/16/2020 2:54 PM Alem [id number] [facility] Electronically signed by: Manolo Senior M.D. 08/16/2020 3:23 PM
--- NOTE | 2020-08-16 16:10 | Discharge Summary ---
Date of Service August 16, 2020 Admission HPI Per Admitting Provider This is a 45-year-old male with PMH of COPD, hypertension, GERD, recent L5-S1 fusion and other medical problems listed below who presents from cardiology clinic due to concern for possible mitral valve endocarditis seen on 2D echocardiogram today. Patient with a complex recent health history, starting with undergoing a tooth extraction in mid July. One week later, patient developed neurological symptoms including visual changes and right sided paresthesias. Was evaluated at [facility] where he had a telestroke evaluation with CT Head negative for acute pathology. Was diagnosed with acute anxiety and given ativan at that time, which improved paresthesias and and was discharged. However, visual symptoms persisted. 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 Was sent to [facility] for evaluation with brain MRI on 08/02, which did not show evidence of acute ischemia, hemorrhage, or mass effect. Unremarkable appearance of the midbrain, tectum, and occipital cortices. Presence of scattered foci of T2 hyperintensity in the subcortical white matter bilaterally, without restricted diffusion, a non-specific finding which most commonly reflects chronic small vessel ischemic change. AchR ab was ordered to evaluate for myasthenia gravis and was negative. During this workup, patient was found to have a right petrous bone effusion. Has seen ENT for this a nd the tinnitus. Was placed on oral steroids and Augmentin and has been taking them for 1.5 weeks. Underwent additional imaging last week, including MRA head and neck which were unremarkable. MRI IAC revealed mild cerebral white matter disease, more than expected for the patient's age, predominantly in the subcortical frontal lobe distribution. In addition to neurological symptoms, patient has recently been experiencing waxing and waning anterior chest soreness. Today, patient underwent exercise stress echo and findings of resting echo were concerning for possible mitral valve vegetation. Report from earlier today shows a "moderate sized mobile echodensity adherent to the anterior mitral valve leaflet or chordae insertion. Differential diagnosis includes vegetation, thrombus or calcified/thickened redundant and/or dissected chordae". Due to recent neurological symptoms and dental procedure last month, cardiology concerned for possible mitral valve endocarditis. Was sent to [facility] for stat blood cultures, broad-spectrum antibiotics and plan for transesophageal echocardiogram tomorrow morning. Patient feels generally weak with paresthesias of right upper extremity and some continued visual disturbance. Endorses intermittent chills but denies any fever. No headache, neck stiffness or reduced range of motion. Denies any lightheadedness, dizziness, chest pain, palpitations, shortness of breath, nausea, vomiting, abdominal pain, dysuria, diarrhea or constipation. No focal weakness, difficulty speaking or swallowing. Ambulating without issue. 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 Paresthesia of right upper extremity Discharge Exam Constitutional cooperative and comfortable Eyes PERRL, conjunctivae normal, anicteric sclerae EOM intact bilaterally ENMT external ear and nose normal, oropharynx normal Neck normal visual inspection Respiratory normal respiratory effort, lungs clear to auscultation Cardiovascular Rate/Rhythm: regular rhythm Gastrointestinal (Abdomen) normal bowel sounds, soft, nontender, no hepatosplenomegaly Musculoskeletal Head/Neck/Chest: normocephalic and head atraumatic Neurologic PERRL, EOMI, accommodation nl, no face palsy, no dysarthria moves all extremities Psychiatric A+Ox3, euthymic affect Discharge Data Allergies Allergy/AdvReac Type Severity Reaction Status Date / Time No Known Allergies Allergy Unknown Verified 08/14/20 17:56 Consultations 08/14/20 21:10 ED Decision to Admit Stat 08/14/20 22:18 Consult Cardiology Routine Consult Neurology Routine 08/16/20 15:50 Burn CD for patient Routine Procedures Performed Operation Date: 08/15/20 08:30 Actual Procedures p Echo Transesophageal - Abhishek Mckeon DO s Echo Doppler Complete - Abhishek Mckeon DO s Echo Color Flow - Abhishek Mckeon DO Ordered Studies 08/14/20 20:30 MR brain wo/w con Routine MR cervical spine wo/w con Routine 08/16/20 06:58 MR lumbar spine wo/w con Routine MR thoracic spine wo/w con Routine Hospital Course (1) Ruptured chordae tendineae: RULED OUT MITRAL VALVE VEGETATION -as per Neurology Consult history "45 year old male with PMH -COPD, hypertension, GERD, recent L5-S1 fusion. He presented from cardiology clinic due to concern for possible mitral valve endocarditis seen on 2D echocardiogram today. he has a complex recent health history, starting with undergoing a tooth extraction in mid July and then developed neurological symptoms including visual changes and right sided paresthesias. He was evaluated at [facility] where he had a telestroke evaluation with CT Head negative for acute pathology and diagnosed with acute anxiety and given Ativan at that time, which improved paresthesias and and was discharged visual symptoms persisted. 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 He was sent to [facility] for evaluation with brain MRI on 08/02, which did not show evidence of acute ischemia, hemorrhage, or mass effect. + scattered foci of T2 hyperintensity in the subcortical white matter bilaterally, without restricted diffusion, a non- specific finding which most commonly reflects chronic small vessel ischemic change. AchR ab was ordered to evaluate for myasthenia gravis and was negative. During this workup, patient was found to have a right petrous bone effusion. ENT saw him for this and tinnitus he was started on oral steroids and Augmentin and has been taking them for 1.5 weeks. He also had an MRA head and neck which were unremarkable. He had a exercise stress echo and findings of resting echo were concerning for possible mitral valve vegetation "moderate sized mobile echodensity adherent to the anterior mitral valve leaflet or chordae insertion." -patient was sent to the ED on 08/14/2020 for further cardiac workup. was admitted. empirically started on Zosyn and Daptomycin and cardiology/neurology service consulted -CHYNA performed on 08/15/2020 and results RULED OUT MITRAL VALVE VEGETATION as no vegetations were visualized by CHYNA - Instead the echodensity abnormality is a "Ruptured chordae tendonea visualized resulting in prolapse of the A2 mitral valve leaflet segment without mitral regurgitation. Antibiotics were stopped in evening of 08/16/2020 -blood cultures no growth to date as of 08/16/2020; outpatient cardiology follow up as discussed with surgical services assistant Dr. Gutierrez in regards to the Ruptured chordae tendonea (2) Visual disturbances: due to convergence insufficiency -patient self reports that vision is normal from distance, but with his right eye he reports that vision up close is blurred -Brain MRI 08/14/2020 : No acute intracranial findings, No intracranial mass or pathologic enhancement, Several subcortical white matter T2 hyperintense foci. Although nonspecific, findings likely reflect small vessel disease. -Cervical spine 08/14/2020: Minimal disc bulge at the C5-C6 level, No evidence of significant spinal or foraminal stenosis, No cord lesions identified -although Brain and cervical spine MRI are unrevealing in further delineating the history of visual symptoms, paraesthesias; patient was convinced that he has something wrong such as a spinal fluid leak as he also has been complaining of headaches recently. - MRI Thoracic spine 08/16/2020 (Vertebral body height and alignment are maintained throughout the thoracic spine. Normal marrow signal intensity is preserved throughout the visualized bony structures. The transverse and spinous processes appear intact. No destructive bony lesion is seen. The intervertebral discs are normal in height and signal intensity. The thoracic spinal cord is normal in morphology and signal intensity. The conus medullaris terminates at the level of L1. There is no abnormal postcontrast enhancement. There is no fluid collection identified adjacent to the thecal sac to suggest cerebrospinal fluid leak. Cerebral spinal flow is normal on the flow studies. The central canal is widely patent. There is no evidence of neural foraminal narrowing throughout the thoracic region. The paraspinous soft tissues are within normal limits. Imaged lung parenchyma is grossly normal but not well evaluated by MRI. Subcentimeter hepatic cysts are partially imaged. A left renal cyst is partially visualized.) -MRI Lumbar spine are ordered for 08/16/2020 (There is no disc herniation or central canal stenosis. There is postoperative change from laminectomy and posterior fusion at L5-S1. Enhancing soft tissue along the right aspect of the thecal sac and posterior to the thecal sac at L5-S1 likely represents granulation tissue. There is no postoperative fluid collection identified. Specifically, there is no fluid collection seen adjacent to the thecal sac to suggest CSF leakage. Mild spondylotic change) -Patient to follow up with primary care doctor Patient to follow up with cardiology clinic in regards to Ruptured chordae tendonea visualized resulting in prolapse of the A2 mitral valve leaflet segment without mitral regurgitation as seen on the 08/15/2020 Transesophageal Echocardiogram Patient to follow up with neurology clinic for any neurological concerns (Dr. Duron from neurology comments that patient may get a nerve conduction EMG of the right upper extremity; this can be done as outpatient basis with in regards to [address], [place] [address]) Inpatient MRI imaging of Brain, Cervical spine, Lumbar Spine, Thoracic Spine have not located any acute neurological etiologies of symptoms and patient to receive the reports and CD of the MRI images on discharge to keep for his medical records or bring to his other clinic providers (3) Paresthesia of right upper extremity: -appears to be intermittent in nature -no pain today as per the patient 08/15/2020 -no ambulatory problems or dizziness when ambulation -management as above (4) Hypertension: -on lisinopril held for 08/16/2020 while patient to get the MRI studies with contrast (5) Chronic obstructive pulmonary disease: Stable (6) GERD (gastroesophageal reflux disease): Continue PPI Code status: FULL PCP: Jayda Total Time Total Time Spent Total Time Spent (In Minutes): 40 minutes Total Time Includes: Examination of the Patient, Discharge Planning, Medication Reconciliation and Communication With Other Providers Discharge Plan Discharge Items Patient Disposition: Home - Self-Care Reason For Visit: CONCERN FOR ENDOCARDITIS Discharge Diagnosis: Ruptured chordae tendineae (RULED OUT MITRAL VALVE VEGETATION) 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 Paresthesia of right upper extremity Condition on Discharge: Good Activity: Per Instructions section Lifting: Gradually increase as tolerated Bathing: No limitations Exercise/Sports: Gradually increase as tolerated Weightbearing: Full weightbearing Non-emergency contact: Primary Care Provider, Electrician Master and Neurologist Call non-emergency contact if: you have any medication questions Follow-up/Referrals: Silvina Montelongo DO [Primary Care Provider] - Diet: Regular Addtl Attending Provider Instructions: Patient to follow up with primary care doctor Patient to follow up with cardiology clinic in regards to Ruptured chordae tendonea visualized resulting in prolapse of the A2 mitral valve leaflet segment without mitral regurgitation as seen on the 08/15/2020 Transesophageal Echocardiogram Patient to follow up with neurology clinic for any neurological concerns (Dr. Duron from neurology comments that patient may get a nerve conduction EMG of the right upper extremity; this can be done as outpatient basis with in regards to [address], [place] [address]) Inpatient MRI imaging of Brain, Cervical spine, Lumbar Spine, Thoracic Spine have not located any acute neurological etiologies of symptoms and patient to receive the reports and CD of the MRI images on discharge to keep for his medical records or bring to his other clinic providers Pending Studies at Discharge: No Stand-Alone Forms: [employer], Smoking Cessation Medications and DC Order Prescriptions: Continued omeprazole 40 mg Capsule,Delayed Release(Dr/Ec) 40 mg PO QAM RF: 0 lisinopril 10 mg Tablet 10 mg PO QAM RF: 0 multivitamin Tablet 1 tab PO DAILY RF: 0 ZzzQuil 50 mg/30 mL Liquid 50 mg PO HS PRN (Reason: Sleep) RF: 0 prednisone 10 mg tablet 0 mg PO .TAPER UD RF: 0 lorazepam 0.5 mg tablet 0.5 mg PO DAILY PRN (Reason: Anxiety) RF: 0 Discontinued amoxicillin-pot clavulanate 875-125 mg tablet 1 tab PO BID RF: 0 Discharge Orders: Discharge Order (Routine); Ordered 08/16/20 Ordered By: Brad Zhang Admission Data Admit Date/Time: 08/14/20 20:19 Attending Provider: Brad Zhang Admit Provider: Brad Davidson Primary Care Provider: Silvina Montelongo Other Providers: Brad Davidson ; Abhishek Mckeon ; Maik Benitez
== END 2020-08-16 17:01 | disposition home or self-care (01) | DRG 307 ==
LOC: ED 15:58 → SUATTDRO 20:19 → 2S 20:19